=== PATIENT | male | born 1965 | race Caucasian/White ===

== ENCOUNTER 2017-06-20 15:04 | Inpatient (IN) | payer MEDICAID, OTHER ==
[~2017-06-20] VITALS: Ht 195.6 cm; Wt 101.5 kg
[2017-06-20] MEDS ORDERED: SODIUM CHLORIDE 0.9% 1,000 ML IV ONE ×2 (15:45→17:38)
[2017-06-20] MEDS ORDERED: SODIUM CHLORIDE 0.9% 1,000ML IVBOLUS ONE (16:00)
[2017-06-20] MEDS ORDERED: CLINDAMYCIN PMX 600MG/50ML 50 ML IVPB ONE (16:00)
[2017-06-20] MEDS ORDERED: LIDOCAINE 1%, 20ML SQ ONE (16:00)
[2017-06-20] MEDS ORDERED: SODIUM CHLORIDE FLUSH 10ML SYR IVF ONE (16:00)
[2017-06-20] MEDS ORDERED: CLINDAMYCIN PMX 600MG/50ML 50 ML ONE (16:12)
[2017-06-20 16:22] LABS: HEMATOCRIT 46.9 % (39.2-51.8); HEMOGLOBIN 15.5 g/dL (13.7-18.0); WHITE BLOOD COUNT 10.9 x10^3/uL (3.4-10)
[2017-06-20 16:31] LABS: BLOOD UREA NITROGEN 14 mg/dL (7-18)
[2017-06-20 16:34] LABS: ASPARTATE AMINO TRANSFERASE 18 U/L (15-37)
[2017-06-20] MEDS ORDERED: LIDOCAINE 1%, 20ML ONE (16:41)
[2017-06-20] MEDS ORDERED: VANCOMYCIN PER PHARMACY MC PRN (17:30)
[2017-06-20] MEDS ORDERED: ONDANSETRON ODT 4 MG PO PRN (17:30)
[2017-06-20] MEDS ORDERED: morphine SULFATE 10 MG/ML, 1ML IVPush PRN (17:30)
[2017-06-20] MEDS ORDERED: POLYETHYLENE GLYCOL 17 GM PACKET PO PRN (17:30)
[2017-06-20] MEDS ORDERED: LABETALOL 5MG/ML, 20ML IVPush PRN (17:30)
[2017-06-20] MEDS ORDERED: ONDANSETRON 2MG/ML, 2ML IVPush PRN (17:30)
[2017-06-20] MEDS ORDERED: DOCUSATE 100 MG CAPSULE PO PRN (17:30)
[2017-06-20] MEDS ORDERED: BISACODYL 10 MG SUPP PR PRN (17:30)
[2017-06-20] MEDS ORDERED: NICOTINE 21 MG/24 HR PATCH.TD24 TD ONE (18:00)
[2017-06-20] MEDS ORDERED: SODIUM CHLORIDE FLUSH 10ML SYR IVF PRN (18:00)
[2017-06-20] MEDS: AMPICILLIN/SULBACTAM 3 GM in SODIUM CHLORIDE 0.9% 100 ML IV SCH ×2 (18:08→23:39)
[2017-06-20 19:08] VITALS: BP 127/82
[2017-06-20] MEDS: ENOXAPARIN 40 MG/0.4 ML SQ SCH (19:26)
[2017-06-20] MEDS ORDERED: PHARMACOKINETIC CONSULTATION MC ONE (19:30)
[2017-06-20] MEDS ORDERED: PHARMACOKINETIC MONITORING MC PRN (19:30)
[2017-06-20] MEDS: SODIUM CHLORIDE 0.9% 1,000 ML IV SCH (20:07)
[2017-06-20] MEDS: VANCOMYCIN 2,000 MG in SODIUM CHLORIDE 0.9% 500 ML IV SCH (20:07)
[2017-06-21 00:17] VITALS: BP 133/92
[2017-06-21] MEDS: AMPICILLIN/SULBACTAM 3 GM in SODIUM CHLORIDE 0.9% 100 ML IV SCH ×3 (05:12→17:54)
[2017-06-21 05:45] LABS: HEMATOCRIT 44.3 % (39.2-51.8); HEMOGLOBIN 14.5 g/dL (13.7-18.0); WHITE BLOOD COUNT 8.1 x10^3/uL (3.4-10)
[2017-06-21 05:53] LABS: ASPARTATE AMINO TRANSFERASE 16 U/L (15-37); BLOOD UREA NITROGEN 13 mg/dL (7-18)
[2017-06-21] MEDS: SODIUM CHLORIDE 0.9% 1,000 ML IV SCH (07:47)
[2017-06-21] MEDS: VANCOMYCIN 2,000 MG in SODIUM CHLORIDE 0.9% 500 ML IV SCH ×2 (07:47→20:50)
[2017-06-21 08:13] VITALS: BP 135/87
[2017-06-21 11:02] LABS: DAU SCREEN DISCLAIMER
[2017-06-21] MEDS: ACETAMINOPHEN 325 MG TABLET PO PRN (13:22)
[2017-06-21 14:46] VITALS: BP 131/86
[2017-06-21] MEDS: ENOXAPARIN 40 MG/0.4 ML SQ SCH (17:54)
[2017-06-21 19:38] VITALS: BP 136/96
[2017-06-22] MEDS: AMPICILLIN/SULBACTAM 3 GM in SODIUM CHLORIDE 0.9% 100 ML IV SCH ×5 (00:14→23:16)
[2017-06-22 02:06] VITALS: BP 136/94
[2017-06-22] MEDS: VANCOMYCIN 2,000 MG in SODIUM CHLORIDE 0.9% 500 ML IV SCH ×2 (07:31→19:23)
[2017-06-22 07:59] VITALS: BP 144/98
[2017-06-22 13:54] VITALS: BP 149/93
[2017-06-22] MEDS: ENOXAPARIN 40 MG/0.4 ML SQ SCH (17:25)
[2017-06-22 19:36] VITALS: BP 141/97
[2017-06-23 03:28] VITALS: BP 146/97
[2017-06-23] MEDS: AMPICILLIN/SULBACTAM 3 GM in SODIUM CHLORIDE 0.9% 100 ML IV SCH ×4 (04:47→23:36)
[2017-06-23 07:29] VITALS: BP 151/101
[2017-06-23] MEDS: VANCOMYCIN 2,000 MG in SODIUM CHLORIDE 0.9% 500 ML IV SCH (08:07)
[2017-06-23 12:31] VITALS: BP 133/88
[2017-06-23] MEDS: ENOXAPARIN 40 MG/0.4 ML SQ SCH (17:13)
[2017-06-23 19:59] VITALS: BP 149/99
[2017-06-24] MEDS: AMPICILLIN/SULBACTAM 3 GM in SODIUM CHLORIDE 0.9% 100 ML IV SCH ×4 (05:30→23:20)
[2017-06-24 07:45] VITALS: BP 137/95
[2017-06-24] MEDS: AMLODIPINE 5 MG TABLET PO SCH (12:39)
[2017-06-24 14:58] VITALS: BP 132/88
[2017-06-24] MEDS: ENOXAPARIN 40 MG/0.4 ML SQ SCH (17:43)
[2017-06-24 19:36] VITALS: BP 141/95
[2017-06-25 00:57] VITALS: BP 138/93
[2017-06-25] MEDS: AMPICILLIN/SULBACTAM 3 GM in SODIUM CHLORIDE 0.9% 100 ML IV SCH ×4 (05:17→23:20)
[2017-06-25 07:17] VITALS: BP 124/82
[2017-06-25] MEDS: AMLODIPINE 5 MG TABLET PO SCH (09:35)
[2017-06-25] MEDS: NICOTINE 14MG/24 HR PATCH.TD24 TD SCH (12:03)
[2017-06-25 12:48] VITALS: BP 149/95
[2017-06-25] MEDS: ENOXAPARIN 40 MG/0.4 ML SQ SCH (17:52)
[2017-06-25] MEDS: ACETAMINOPHEN 325 MG TABLET PO PRN (17:59)
[2017-06-25 19:49] VITALS: BP 127/87
[2017-06-26 02:42] VITALS: BP 137/98
[2017-06-26] MEDS: AMPICILLIN/SULBACTAM 3 GM in SODIUM CHLORIDE 0.9% 100 ML IV SCH ×2 (04:55→11:30)
[2017-06-26 07:30] VITALS: BP 131/85
[2017-06-26] MEDS ORDERED: AMOX1TAB61 PO (10:18)
[2017-06-26] MEDS ORDERED: AMLO5TAB2 PO (10:18)
[2017-06-26] MEDS: NICOTINE 14MG/24 HR PATCH.TD24 TD SCH (10:42)
[2017-06-26] MEDS: AMLODIPINE 5 MG TABLET PO SCH (10:42)
== END 2017-06-26 13:08 | disposition home or self-care (01) | DRG 580 ==
LOC: ED 17:25 → EDIP 18:43 → 3NE 18:45 → DCLOUNGE 06-26 12:30
PROC: 0J9H0ZZ Drainage of Left Lower Arm Subcutaneous Tissue and Fascia, Open Approach (ICD-10-PCS; principal; 2017-06-20)
DX: L03.114 Cellulitis of left upper limb (principal); E44.1 Mild protein-calorie malnutrition; I10 Essential (primary) hypertension; L02.414 Cutaneous abscess of left upper limb; T63.301A Toxic effect of unspecified spider venom, accidental (unintentional), initial encounter; F15.90 Other stimulant use, unspecified, uncomplicated; Z68.26 Body mass index [BMI] 26.0-26.9, adult; Z72.0 Tobacco use; F19.90 Other psychoactive substance use, unspecified, uncomplicated
CPT/HCPCS: 10060; 36415; 80053; 80202; 80307; 83605; 84145; 85025; 87040; 87070; 87075; 87077; 87186; 87205; 96365; J0295; J1650; J3370; J7030; J7040

== ENCOUNTER 2020-05-17 12:45 | Inpatient (IN) | payer MEDICAID ==
[~2020-05-17] VITALS: Ht 195.6 cm; Wt 104.6 kg
[~2020-05-17 12:45] MED LIST: AMLO-150 PO; AMOX1TAB61 PO
--- NOTE | 2020-05-17 13:03 | NUR ---
RECRUITMENT CONSULTANT: PT FROM LOBBY TO ROOM AT THIS TIME.
--- NOTE | 2020-05-17 13:30 | NUR ---
PT C/O RRIGHT LOWER LEG PAIN AND SWELLING FOR ONE WEEK WITH REDNESS NOW EXTENDING UP TO PT'S MED THIGH. PT DENIES FEVERS/CHILLS. PT ALSO REPORTS WHITE DC FROM [facility] OVER SAME TIME PERIOD. PT HAS HX OF SURGERY TO LEG YEARS AGO FROM "[place]."
[2020-05-17] MEDS ORDERED: PIPERACILLIN/TAZO/PMX 3.375GM 50 ML IV ONE (14:00)
[2020-05-17] MEDS ORDERED: SODIUM CHLORIDE FLUSH 10ML SYR IVF ONE (14:00)
[2020-05-17] MEDS ORDERED: AZITHROMYCIN 500 MG TABLET PO ONE (14:00)
[2020-05-17] MEDS ORDERED: CEFTRIAXONE 250 MG IM ONE (14:00)
[2020-05-17] MEDS ORDERED: AZITHROMYCIN 500 MG TABLET ONE (14:13)
[2020-05-17] MEDS ORDERED: PIPERACILLIN/TAZO/PMX 3.375GM 50 ML ONE (14:13)
[2020-05-17] MEDS ORDERED: LIDOCAINE-MPF 1%, 5ML ONE (14:14)
[2020-05-17] MEDS ORDERED: CEFTRIAXONE 250 MG ONE (14:14)
[2020-05-17 14:22] LABS: MEAN CORPUSCULAR HEMOGLOBIN 30.3 pg (27.5-34.5); MEAN CORPUSCULAR HGB CONC 32.9 g/dL (33.2-36.2); MEAN CORPUSCULAR VOLUME 92.2 fL (81-97); MEAN PLATELET VOLUME 8.9 fL (7.4-10.4); PLATELET COUNT 262 x10^3/uL (130-400); RED BLOOD COUNT 4.33 x10^6/uL (4.38-5.82); RED CELL DISTRIBUTION WIDTH 13.7 % (9.4-14.8)
[2020-05-17 14:31] LABS: ALBUMIN 2.3 g/dL (3.4-5.0); ANION GAP 6 mmol/L (5-15); CALCIUM 8.1 mg/dL (8.5-10.1); CHLORIDE 102 mmol/L (98-107)
--- NOTE | 2020-05-17 14:31 | NUR ---
ANTIBIOTICS STARTED AFTER BLOOD CULTURES X 2 WERE DRAWN.
[2020-05-17 14:35] LABS: ALANINE AMINOTRANSFERASE 97 U/L (12-78); ALKALINE PHOSPHATASE 142 U/L (45-117); BILIRUBIN,TOTAL 0.7 mg/dL (0.2-1.0); CREATININE 0.91 mg/dL (0.7-1.3); TOTAL PROTEIN 6.9 g/dL (6.4-8.2)
[2020-05-17 14:56] LABS: BASOPHILS # (AUTO) 0.03 x10^3/uL (0-0.1); BASOPHILS % (AUTO) 0 % (0-1); EOSINOPHILS # (AUTO) 0.09 x10^3/uL (0-0.4); EOSINOPHILS % (AUTO) 1 % (1-7); LYMPHOCYTES % (AUTO) 9 % (22-44); MD SCAN; MONOCYTES # (AUTO) 1.21 x10^3/uL (0.2-0.8); MONOCYTES % (AUTO) 10 % (2-9); NEUTROPHILS # (AUTO) 10.01 x10^3/uL (1.8-6.8); NEUTROPHILS % (AUTO) 80 % (42-75)
--- NOTE | 2020-05-17 16:00 | NUR ---
XRAY OF LEG BEING DONE AT BEDSIDE. PT TO BE ADMITTED. WAITING FOR BED ASSIGNMENT.
--- NOTE | 2020-05-17 16:27 | NUR ---
DR. Braun at bedside for admit.
[2020-05-17] MEDS ORDERED: VANCOMYCIN PER PHARMACY MC PRN (16:30)
[2020-05-17] MEDS ORDERED: hydrALAzine 20 MG/ML, 1ML IVPush PRN (16:30)
[2020-05-17] MEDS ORDERED: ONDANSETRON 2MG/ML, 2ML IVPush PRN (16:30)
[2020-05-17] MEDS ORDERED: SODIUM CHLORIDE FLUSH 10ML SYR IVF PRN (16:30)
--- NOTE | 2020-05-17 16:59 | NUR ---
SUNNY Guzman [phone], FRIEND OF PT LEFT NUMBER TO CALL FOR PT WHEN HE AWAKES.
[2020-05-17] MEDS ORDERED: VANCOMYCIN 2,000 MG in SODIUM CHLORIDE 0.9% 500 ML IV ONE (17:00)
--- NOTE | 2020-05-17 17:26 | NUR ---
TASK RN: PT RESTING IN [facility]. VSS. NAD. US IN WITH PT AT THIS TIME
--- NOTE | 2020-05-17 17:56 | NUR ---
Pt. with medicaid [place]. PSN was faxed and confirmation was recieved. called [facility]. Spoke to Nancy. Denied. called [facility]. Spoke to Chelsea. Denied.
[2020-05-17] MEDS ORDERED: ENOXAPARIN 40 MG/0.4 ML ONE (18:12)
[2020-05-17] MEDS: ENOXAPARIN 40 MG/0.4 ML SQ SCH (18:14)
[2020-05-17 20:00] VITALS: BP 114/75
[2020-05-17] MEDS ORDERED: POTASSIUM CHLORIDE 20 MEQ TAB.ER.PRT PO ONE (20:00)
[2020-05-17] MEDS: NICOTINE 21 MG/24 HR PATCH.TD24 TD SCH (20:08)
[2020-05-17] MEDS: SODIUM CHLORIDE 0.9% 1,000 ML IV SCH (20:09)
[2020-05-17] MEDS: ACETAMINOPHEN 325 MG TABLET PO PRN (23:37)
[2020-05-18 00:33] LABS: AMPHETAMINE SCREEN, URINE Positive (Negative); BARBITURATE SCREEN, URINE Negative (Negative); BENZODIAZEPINE SCREEN, URINE Negative (Negative); CANNABINOID SCREEN, URINE Negative (Negative); COCAINE SCREEN, URINE Negative (Negative); METHADONE SCREEN, URINE Negative (Negative); OPIATE SCREEN, URINE Negative (Negative)
[2020-05-18 01:49] VITALS: BP 118/71
[2020-05-18 06:03] LABS: BASOPHILS # (AUTO) 0.01 x10^3/uL (0-0.1); BASOPHILS % (AUTO) 0 % (0-1); EOSINOPHILS # (AUTO) 0.24 x10^3/uL (0-0.4); EOSINOPHILS % (AUTO) 2 % (1-7); LYMPHOCYTES % (AUTO) 14 % (22-44); MD NO; MEAN CORPUSCULAR HEMOGLOBIN 30.3 pg (27.5-34.5); MEAN CORPUSCULAR HGB CONC 32.8 g/dL (33.2-36.2); MEAN CORPUSCULAR VOLUME 92.4 fL (81-97); MEAN PLATELET VOLUME 8.8 fL (7.4-10.4); MONOCYTES # (AUTO) 0.94 x10^3/uL (0.2-0.8); MONOCYTES % (AUTO) 9 % (2-9); NEUTROPHILS % (AUTO) 74 % (42-75); PLATELET COUNT 266 x10^3/uL (130-400); RED BLOOD COUNT 4.25 x10^6/uL (4.38-5.82); RED CELL DISTRIBUTION WIDTH 14.2 % (9.4-14.8)
[2020-05-18 06:11] LABS: ALANINE AMINOTRANSFERASE 98 U/L (12-78); ANION GAP 5 mmol/L (5-15); CALCIUM 8.3 mg/dL (8.5-10.1); CHLORIDE 105 mmol/L (98-107)
[2020-05-18 06:13] LABS: ALKALINE PHOSPHATASE 157 U/L (45-117); BILIRUBIN,TOTAL 0.4 mg/dL (0.2-1.0); CREATININE 1.02 mg/dL (0.7-1.3); TOTAL PROTEIN 6.5 g/dL (6.4-8.2)
[2020-05-18 07:00] VITALS: BP 118/77
[2020-05-18] MEDS ORDERED: POTASSIUM CHLORIDE 20 MEQ TAB.ER.PRT PO ONE ×2 (09:00→11:00)
[2020-05-18 14:07] VITALS: BP 131/76
[2020-05-18] MEDS ORDERED: POTASSIUM CHLORIDE 20 MEQ TAB.ER.PRT ONE (16:55)
[2020-05-18] MEDS: VANCOMYCIN 2,000 MG in SODIUM CHLORIDE 0.9% 500 ML IV SCH (16:56)
[2020-05-18] MEDS: ENOXAPARIN 40 MG/0.4 ML SQ SCH (16:57)
[2020-05-18] MEDS: NICOTINE 21 MG/24 HR PATCH.TD24 TD SCH (16:57)
[2020-05-18] MEDS: ACETAMINOPHEN 325 MG TABLET PO PRN (16:57)
[2020-05-18] MEDS: SODIUM CHLORIDE 0.9% 1,000 ML IV SCH (16:58)
[2020-05-18 19:45] VITALS: BP 107/70
[2020-05-19 01:21] VITALS: BP 115/75
[2020-05-19] MEDS: ACETAMINOPHEN 325 MG TABLET PO PRN (01:42)
[2020-05-19] MEDS: VANCOMYCIN 2,000 MG in SODIUM CHLORIDE 0.9% 500 ML IV SCH ×2 (04:45→16:40)
[2020-05-19 09:27] VITALS: BP 118/78
[2020-05-19] MEDS: ACETAMINOPHEN 325 MG TABLET PO SCH ×3 (11:09→23:27)
[2020-05-19 12:43] VITALS: BP 127/82
[2020-05-19] MEDS ORDERED: PHARMACOKINETIC MONITORING MC PRN (15:00)
[2020-05-19] MEDS ORDERED: PHARMACOKINETIC CONSULTATION MC ONE (15:00)
[2020-05-19] MEDS: ENOXAPARIN 40 MG/0.4 ML SQ SCH (16:39)
[2020-05-19] MEDS: NICOTINE 21 MG/24 HR PATCH.TD24 TD SCH (16:39)
[2020-05-19 18:47] VITALS: BP 118/72
[2020-05-20 01:24] VITALS: BP 116/77
[2020-05-20] MEDS: VANCOMYCIN 2,000 MG in SODIUM CHLORIDE 0.9% 500 ML IV SCH (04:59)
[2020-05-20 05:34] LABS: CHLORIDE 108 mmol/L (98-107)
[2020-05-20 05:40] LABS: ALANINE AMINOTRANSFERASE 70 U/L (12-78); ALBUMIN 1.7 g/dL (3.4-5.0); ALKALINE PHOSPHATASE 156 U/L (45-117); ANION GAP 7 mmol/L (5-15); BILIRUBIN,TOTAL 0.3 mg/dL (0.2-1.0); CALCIUM 8.1 mg/dL (8.5-10.1); CREATININE 0.83 mg/dL (0.7-1.3); TOTAL PROTEIN 6.4 g/dL (6.4-8.2)
[2020-05-20 08:00] VITALS: BP 149/91
[2020-05-20] MEDS: ACETAMINOPHEN 325 MG TABLET PO SCH (09:06)
[2020-05-20] MEDS ORDERED: CLIN300C8 PO (10:07)
[2020-05-20] MEDS ORDERED: CLIN150C14 PO (10:07)
== END 2020-05-20 14:03 | disposition home or self-care (01) | DRG 603 ==
LOC: ED 16:37 → EDIP 19:07 → 3N 19:24
PROVIDERS: ADMIT Hospitalist; ATTEND Hospitalist
DX: L03.115 Cellulitis of right lower limb (principal); F10.10 Alcohol abuse, uncomplicated; F15.90 Other stimulant use, unspecified, uncomplicated
CPT/HCPCS: 36415; 76700; 80053; 80202; 80307; 83605; 83735; 84100; 84145; 85025; 86704; 86706; 86708; 86803; 87040; 87340; 87491; 87591; 87806; G0378; J0696; J1650; J2543; J3370; G0475; J7030; J7040

== ENCOUNTER 2021-01-10 12:52 | Inpatient (IN) | payer MEDICAID ==
[~2021-01-10] VITALS: Ht 195.6 cm; Wt 101.5 kg
[~2021-01-10 12:52] MED LIST changes: +CLIN150C15 PO; +CLIN300C9 PO
[2021-01-10] MEDS ORDERED: SODIUM CHLORIDE FLUSH 10ML SYR IVF ONE (13:30)
--- NOTE | 2021-01-10 13:49 | NUR ---
PIV PLACED FROM WHICH LABS WERE DRAWN
--- NOTE | 2021-01-10 13:56 | NUR ---
FSBS [address] SCAN FOR HEAD/NECK AT 1353
[2021-01-10] MEDS ORDERED: HYDR-1067 PO (13:58)
[2021-01-10 13:59] LABS: BASOPHILS % (AUTO) 1 % (0-1); EOSINOPHILS % (AUTO) 0 % (1-7); LYMPHOCYTES % (AUTO) 12 % (22-44); MEAN CORPUSCULAR HEMOGLOBIN 29.5 pg (27.5-34.5); MEAN CORPUSCULAR HGB CONC 33.8 g/dL (33.2-36.2); MEAN PLATELET VOLUME 8.3 fL (7.4-10.4); MONOCYTES % (AUTO) 7 % (2-9); NEUTROPHILS % (AUTO) 80 % (42-75); PLATELET COUNT 505 x10^3/uL (130-400); RED BLOOD COUNT 5.07 x10^6/uL (4.38-5.82); RED CELL DISTRIBUTION WIDTH 14.5 % (9.4-14.8)
[2021-01-10 14:00] LABS: ALBUMIN 3.4 g/dL (3.4-5.0); ANION GAP 8 mmol/L (5-15); CALCIUM 9.6 mg/dL (8.5-10.1); CHLORIDE 101 mmol/L (98-107); CREATININE 1.15 mg/dL (0.7-1.3)
--- NOTE | 2021-01-10 14:22 | NUR ---
PT CALMLY SITTING ON GURNEY, WATCHING TV. COMFORT MEASURES PROVIDED. MONITORS IN PLACE. BED RAILS UP X2. CALL LIGHT WITHIN REACH.
[2021-01-10 14:23] LABS: MD SCAN
[2021-01-10] MEDS ORDERED: SODIUM CHLORIDE FLUSH 10ML SYR IVF PRN (15:30)
[2021-01-10] MEDS ORDERED: TRAZODONE 50MG TABLET PO PRN (15:30)
[2021-01-10] MEDS ORDERED: DOCUSATE 100 MG CAPSULE PO PRN (15:30)
[2021-01-10] MEDS ORDERED: ONDANSETRON 2MG/ML, 2ML IVPush PRN (15:30)
[2021-01-10 15:43] LABS: TROPONIN I < 0.015 ng/mL (0.000-0.045)
--- NOTE | 2021-01-10 15:45 | NUR ---
PT TO MRI
--- NOTE | 2021-01-10 15:50 | NUR ---
Pt to be admitted to CARDIAC TELE, room 508-1. Report called to MAITE.
[2021-01-10] MEDS ORDERED: OMNIPAQUE 350 MG/ML, 100ML BOTTLE ONE (16:41)
[2021-01-10 17:30] VITALS: BP 135/96
[2021-01-10] MEDS: ENOXAPARIN 40 MG/0.4 ML SQ SCH (18:21)
[2021-01-10 19:58] VITALS: BP 123/86
[2021-01-10] MEDS ORDERED: LACTATED RINGERS 1,000 ML IV ONE (20:30)
[2021-01-10] MEDS: ATORVASTATIN 40 MG TABLET PO SCH (20:39)
--- NOTE | 2021-01-10 21:27 | NUR ---
throughput rn accessed chart to send up paper chart left in ed.
[2021-01-10 22:01] LABS: TROPONIN I < 0.015 ng/mL (0.000-0.045)
[2021-01-11 01:18] VITALS: BP 136/98
[2021-01-11 04:55] LABS: BASOPHILS % (AUTO) 1 % (0-1); EOSINOPHILS % (AUTO) 1 % (1-7); LYMPHOCYTES % (AUTO) 14 % (22-44); MEAN CORPUSCULAR HEMOGLOBIN 29.1 pg (27.5-34.5); MEAN CORPUSCULAR HGB CONC 33.5 g/dL (33.2-36.2); MEAN PLATELET VOLUME 8.4 fL (7.4-10.4); MONOCYTES % (AUTO) 9 % (2-9); NEUTROPHILS % (AUTO) 74 % (42-75); PLATELET COUNT 422 x10^3/uL (130-400); RED BLOOD COUNT 4.43 x10^6/uL (4.38-5.82); RED CELL DISTRIBUTION WIDTH 14.8 % (9.4-14.8)
[2021-01-11 04:56] LABS: MD NO
[2021-01-11 05:04] LABS: ANION GAP 7 mmol/L (5-15); CALCIUM 8.6 mg/dL (8.5-10.1); CHLORIDE 104 mmol/L (98-107); CHOLESTEROL, TOTAL 200 mg/dL (140-239); CREATININE 0.82 mg/dL (0.7-1.3)
[2021-01-11 05:14] LABS: CHOL/HDL RATIO 9.5; HDL CHOL % 11 % (26-37); HDL CHOLESTEROL (DIRECT) 21 mg/dL (40-60); LDL CHOLESTEROL,CALCULATED 155 mg/dL (54-169); LDL/HDL RATIO 7.4 (0.5-3.0); TRIGLYCERIDES 122 mg/dL (50-200); VLDL CHOLESTEROL 24 mg/dL (0-25)
[2021-01-11] MEDS: ASPIRIN 325 MG TABLET PO SCH (05:18)
[2021-01-11 07:11] VITALS: BP 136/89
[2021-01-11] MEDS: ACETAMINOPHEN 325 MG TABLET PO PRN ×2 (09:39→22:06)
[2021-01-11 13:02] VITALS: BP 133/97
[2021-01-11] MEDS: ENOXAPARIN 40 MG/0.4 ML SQ SCH (16:04)
[2021-01-11] MEDS: HYDROcodone/APAP 5/325 TABLET PO PRN (18:09)
[2021-01-11] MEDS ORDERED: GADOTERATE 10 MMOL/20 ML VIAL ONE (18:39)
[2021-01-11] MEDS ORDERED: LIDOCAINE JELLY 2%, 30GM TP ONE (20:00)
[2021-01-11 20:20] VITALS: BP 132/94
[2021-01-11] MEDS: ATORVASTATIN 40 MG TABLET PO SCH (22:08)
[2021-01-12] MEDS: HYDROcodone/APAP 5/325 TABLET PO PRN ×3 (00:19→17:32)
[2021-01-12 00:20] VITALS: BP 144/77
[2021-01-12] MEDS: ASPIRIN 325 MG TABLET PO SCH (05:56)
[2021-01-12 07:28] VITALS: BP 135/90
[2021-01-12] MEDS ORDERED: GADOTERATE 10 MMOL/20 ML VIAL ONE (13:30)
[2021-01-12 14:58] VITALS: BP 156/99
[2021-01-12] MEDS: ENOXAPARIN 40 MG/0.4 ML SQ SCH (16:51)
[2021-01-12 20:32] VITALS: BP 136/95
[2021-01-12] MEDS: ACETAMINOPHEN 325 MG TABLET PO PRN (20:44)
[2021-01-12] MEDS: ATORVASTATIN 40 MG TABLET PO SCH (20:44)
[2021-01-13 00:36] VITALS: BP 143/94
[2021-01-13] MEDS: ASPIRIN 325 MG TABLET PO SCH (06:18)
[2021-01-13] MEDS: HYDROcodone/APAP 5/325 TABLET PO PRN ×4 (06:24→21:36)
[2021-01-13 07:00] VITALS: BP 151/99
[2021-01-13 13:21] VITALS: BP 139/96
[2021-01-13] MEDS: ENOXAPARIN 40 MG/0.4 ML SQ SCH (15:06)
[2021-01-13 18:46] VITALS: BP 147/96
[2021-01-14 02:43] VITALS: BP 130/83
[2021-01-14 04:57] LABS: BASOPHILS % (AUTO) 1 % (0-1); EOSINOPHILS % (AUTO) 2 % (1-7); LYMPHOCYTES % (AUTO) 11 % (22-44); MD NO; MEAN CORPUSCULAR HEMOGLOBIN 29.3 pg (27.5-34.5); MEAN CORPUSCULAR HGB CONC 33.6 g/dL (33.2-36.2); MONOCYTES % (AUTO) 7 % (2-9); NEUTROPHILS % (AUTO) 80 % (42-75); PLATELET COUNT 447 x10^3/uL (130-400); RED CELL DISTRIBUTION WIDTH 14.5 % (9.4-14.8)
[2021-01-14 05:06] LABS: ALBUMIN 2.6 g/dL (3.4-5.0); ANION GAP 8 mmol/L (5-15); CALCIUM 8.8 mg/dL (8.5-10.1); CHLORIDE 103 mmol/L (98-107); CREATININE 0.74 mg/dL (0.7-1.3)
[2021-01-14 08:00] VITALS: BP 136/97
[2021-01-14 14:00] VITALS: BP 123/90
[2021-01-14] MEDS: ENOXAPARIN 40 MG/0.4 ML SQ SCH (15:30)
[2021-01-14 18:34] VITALS: BP 138/89
[2021-01-14] MEDS: HYDROcodone/APAP 5/325 TABLET PO PRN (23:02)
[2021-01-15 02:30] VITALS: BP 123/89
[2021-01-15 05:19] LABS: BASOPHILS % (AUTO) 1 % (0-1); EOSINOPHILS % (AUTO) 1 % (1-7); LYMPHOCYTES % (AUTO) 12 % (22-44); MEAN CORPUSCULAR HEMOGLOBIN 28.6 pg (27.5-34.5); MEAN CORPUSCULAR HGB CONC 32.9 g/dL (33.2-36.2); MEAN PLATELET VOLUME 8.1 fL (7.4-10.4); MONOCYTES % (AUTO) 8 % (2-9); NEUTROPHILS % (AUTO) 78 % (42-75); PLATELET COUNT 526 x10^3/uL (130-400); RED BLOOD COUNT 4.81 x10^6/uL (4.38-5.82); RED CELL DISTRIBUTION WIDTH 14.7 % (9.4-14.8)
[2021-01-15 05:21] LABS: MD NO
[2021-01-15 07:20] VITALS: BP 132/94
[2021-01-15 13:15] VITALS: BP 127/92
--- NOTE | 2021-01-15 14:06 | NUR ---
TF orders: Jevmarko 1.2 @ 80 mL/hr Addendum: 01/15/21 at [address] Amended: Links added.
[2021-01-15] MEDS: HYDROcodone/APAP 5/325 TABLET PO PRN ×2 (14:43→21:16)
[2021-01-15 15:20] LABS: AMPHETAMINE SCREEN, URINE Negative (Negative); BARBITURATE SCREEN, URINE Negative (Negative); BENZODIAZEPINE SCREEN, URINE Negative (Negative); CANNABINOID SCREEN, URINE Negative (Negative); COCAINE SCREEN, URINE Negative (Negative); METHADONE SCREEN, URINE Negative (Negative); OPIATE SCREEN, URINE Positive (Negative)
--- NOTE | 2021-01-15 15:20 | NUR ---
Tube Feed: Jevity 1.2 goal: 80 ml/hr Addendum: 01/15/21 at [address] Amended: Links added.
[2021-01-15] MEDS ORDERED: LIDOCAINE 1%, 10ML ONE (16:22)
[2021-01-15] MEDS ORDERED: FENTANYL PF 100 MCG/2ML ONE ×2 (16:23)
[2021-01-15] MEDS ORDERED: FLUMAZENIL 0.1 MG/1 ML, 5ML ONE (16:23)
[2021-01-15] MEDS ORDERED: MIDAZOLAM 1 MG/ML, 5ML ONE (16:23)
[2021-01-15] MEDS ORDERED: NALOXONE 1 MG/ML, 2ML ONE (16:24)
[2021-01-15 18:39] VITALS: BP 122/89
[2021-01-15] MEDS: TRAZODONE 50MG TABLET PO SCH (21:58)
[2021-01-16 02:35] VITALS: BP 115/83
[2021-01-16 05:18] LABS: BASOPHILS % (AUTO) 1 % (0-1); EOSINOPHILS % (AUTO) 2 % (1-7); LYMPHOCYTES % (AUTO) 11 % (22-44); MEAN CORPUSCULAR HEMOGLOBIN 28.5 pg (27.5-34.5); MEAN CORPUSCULAR HGB CONC 33.5 g/dL (33.2-36.2); MEAN PLATELET VOLUME 7.9 fL (7.4-10.4); MONOCYTES % (AUTO) 8 % (2-9); NEUTROPHILS % (AUTO) 79 % (42-75); PLATELET COUNT 510 x10^3/uL (130-400); RED BLOOD COUNT 4.59 x10^6/uL (4.38-5.82)
[2021-01-16 05:23] LABS: MD NO
[2021-01-16 08:14] VITALS: BP 123/90
[2021-01-16] MEDS: morphine SULFATE 10 MG/ML, 1ML IVPush PRN ×3 (09:20→19:45)
[2021-01-16] MEDS ORDERED: ENOXAPARIN 40 MG/0.4 ML SQ SCH (09:30)
[2021-01-16 13:42] VITALS: BP 117/83
[2021-01-16] MEDS: HEPARIN 25,000 UNITS/250ML PMX 250 ML IV PRN (14:16)
[2021-01-16 19:53] VITALS: BP 114/79
[2021-01-16] MEDS: TRAZODONE 50MG TABLET PO SCH (22:28)
[2021-01-16] MEDS: HEPARIN 5,000 UNITS/ML, 1ML IV PRN (22:30)
[2021-01-17 01:18] VITALS: BP 108/73
[2021-01-17] MEDS: HEPARIN 5,000 UNITS/ML, 1ML IV PRN ×3 (05:55→20:44)
[2021-01-17 06:56] VITALS: BP 118/84
[2021-01-17] MEDS: HEPARIN 25,000 UNITS/250ML PMX 250 ML IV PRN ×2 (07:08→23:11)
[2021-01-17] MEDS: morphine SULFATE 10 MG/ML, 1ML IVPush PRN ×4 (07:55→23:20)
[2021-01-17] MEDS ORDERED: PHENOL THROAT SPRAY BOTTLE MM PRN (08:30)
[2021-01-17 12:59] VITALS: BP 121/88
[2021-01-17 19:44] VITALS: BP 135/93
[2021-01-17] MEDS: TRAZODONE 50MG TABLET PO SCH (20:44)
[2021-01-18 01:07] VITALS: BP 105/69
[2021-01-18] MEDS: morphine SULFATE 10 MG/ML, 1ML IVPush PRN ×2 (04:45→08:33)
[2021-01-18 04:56] LABS: ANION GAP 6 mmol/L (5-15); CALCIUM 8.9 mg/dL (8.5-10.1); CHLORIDE 101 mmol/L (98-107); CREATININE 0.71 mg/dL (0.7-1.3)
[2021-01-18 04:59] LABS: BASOPHILS % (AUTO) 1 % (0-1); EOSINOPHILS % (AUTO) 1 % (1-7); LYMPHOCYTES % (AUTO) 17 % (22-44); MEAN CORPUSCULAR HEMOGLOBIN 28.5 pg (27.5-34.5); MEAN CORPUSCULAR HGB CONC 33.1 g/dL (33.2-36.2); MEAN PLATELET VOLUME 7.9 fL (7.4-10.4); MONOCYTES % (AUTO) 9 % (2-9); NEUTROPHILS % (AUTO) 72 % (42-75); PLATELET COUNT 498 x10^3/uL (130-400); RED BLOOD COUNT 4.54 x10^6/uL (4.38-5.82); RED CELL DISTRIBUTION WIDTH 14.7 % (9.4-14.8)
[2021-01-18 05:01] LABS: MD NO
[2021-01-18 06:45] VITALS: BP 100/67
[2021-01-18] MEDS: FENTANYL 25 MCG PATCH TD SCH (08:33)
[2021-01-18] MEDS: HEPARIN 25,000 UNITS/250ML PMX 250 ML IV PRN (11:31)
[2021-01-18] MEDS: MORPHINE SULFATE 4 MG/ML, 1ML IVPush PRN ×3 (11:46→21:34)
[2021-01-18 13:27] VITALS: BP 119/83
[2021-01-18 20:35] VITALS: BP 127/88
[2021-01-18] MEDS: TRAZODONE 50MG TABLET PO SCH (21:34)
[2021-01-19] MEDS: HEPARIN 25,000 UNITS/250ML PMX 250 ML IV PRN ×2 (00:43→19:23)
[2021-01-19 00:46] VITALS: BP 113/74
[2021-01-19] MEDS: MORPHINE SULFATE 4 MG/ML, 1ML IVPush PRN ×4 (05:56→19:39)
[2021-01-19 06:10] LABS: INTERNATIONAL NORMALIZED RATIO 1.08 (0.93-1.1); PROTHROMBIN TIME 11.5 Seconds (9.6-11.5)
[2021-01-19 07:09] VITALS: BP 124/86
[2021-01-19] MEDS ORDERED: LABETALOL 5MG/ML, 20ML IV PRN (08:30)
[2021-01-19] MEDS ORDERED: HYDROmorphone 1 MG/ML, 1ML INJ IVPush PRN (08:30)
[2021-01-19] MEDS ORDERED: hydrALAzine 20 MG/ML, 1ML IV PRN (08:30)
[2021-01-19] MEDS ORDERED: ACETAMINOPHEN 325 MG TABLET PO PRN (08:30)
[2021-01-19] MEDS ORDERED: OXYcodone 5 MG/5 ML ORAL.SOL UDC PO PRN (08:30)
[2021-01-19] MEDS ORDERED: FENTANYL PF 100 MCG/2ML IV PRN (08:30)
[2021-01-19] MEDS ORDERED: ONDANSETRON 2MG/ML, 2ML IVPush PRN (08:30)
[2021-01-19] MEDS ORDERED: PROMETHAZINE 25 MG/ML, 1ML IVPush PRN (08:30)
[2021-01-19] MEDS ORDERED: EPHEDRINE 50 MG/ML, 1ML IVPush PRN (08:30)
[2021-01-19] MEDS ORDERED: PROPOFOL 50 ML ONE (11:12)
[2021-01-19] MEDS ORDERED: CEFAZOLIN PMX 2GM/50ML 100 ML IV ONE (12:00)
[2021-01-19] MEDS ORDERED: CHLORHEXIDINE 15 ML UDC ONE (12:40)
[2021-01-19 13:38] VITALS: BP 118/83
[2021-01-19] MEDS ORDERED: OMNIPAQUE 350 MG/ML, 100ML BOTTLE ONE (17:40)
[2021-01-19] MEDS ORDERED: HEPARIN 5,000 UNITS/ML, 1ML IV ONE (19:30)
[2021-01-19 20:41] VITALS: BP 130/93
[2021-01-19] MEDS: TRAZODONE 50MG TABLET PO SCH (21:49)
[2021-01-20 01:45] VITALS: BP 118/80
[2021-01-20 02:22] LABS: ANION GAP 9 mmol/L (5-15); CALCIUM 8.7 mg/dL (8.5-10.1); CHLORIDE 98 mmol/L (98-107); CREATININE 0.71 mg/dL (0.7-1.3)
[2021-01-20 02:23] LABS: BASOPHILS % (AUTO) 1 % (0-1); EOSINOPHILS % (AUTO) 1 % (1-7); LYMPHOCYTES % (AUTO) 12 % (22-44); MEAN CORPUSCULAR HEMOGLOBIN 28.3 pg (27.5-34.5); MEAN CORPUSCULAR HGB CONC 32.8 g/dL (33.2-36.2); MONOCYTES % (AUTO) 8 % (2-9); NEUTROPHILS % (AUTO) 79 % (42-75); PLATELET COUNT 543 x10^3/uL (130-400); RED BLOOD COUNT 4.61 x10^6/uL (4.38-5.82); RED CELL DISTRIBUTION WIDTH 14.3 % (9.4-14.8)
[2021-01-20 02:28] LABS: MD NO
[2021-01-20] MEDS: HEPARIN 5,000 UNITS/ML, 1ML IV PRN ×4 (02:45→23:47)
[2021-01-20] MEDS: MORPHINE SULFATE 4 MG/ML, 1ML IVPush PRN ×2 (02:51→10:37)
[2021-01-20 05:52] LABS: ALBUMIN 2.5 g/dL (3.4-5.0); BILIRUBIN, DIRECT 0.4 mg/dL (0.1-0.2)
[2021-01-20 06:02] LABS: BILIRUBIN,INDIRECT 0.3 mg/dL (0.0-2.0); BILIRUBIN,TOTAL 0.7 mg/dL (0.2-1.0); TOTAL PROTEIN 7.6 g/dL (6.4-8.2)
[2021-01-20 07:05] VITALS: BP 113/76
[2021-01-20] MEDS ORDERED: GOLYTELY 4,000ML ORAL.SOL PO ONE (09:30)
[2021-01-20 12:43] VITALS: BP 122/85
[2021-01-20] MEDS: HEPARIN 25,000 UNITS/250ML PMX 250 ML IV PRN (13:56)
[2021-01-20 18:33] LABS: OCCULT BLOOD POSITIVE (NEGATIVE)
[2021-01-20] MEDS: ONDANSETRON ODT 4 MG PO PRN (19:41)
[2021-01-20] MEDS: HYDROmorphone 1 MG/ML, 1ML INJ IV PRN (19:49)
[2021-01-20 20:44] VITALS: BP 134/92
[2021-01-20] MEDS: TRAZODONE 50MG TABLET PO SCH (21:08)
[2021-01-21 02:04] VITALS: BP 126/89
[2021-01-21] MEDS: ONDANSETRON ODT 4 MG PO PRN (04:00)
[2021-01-21] MEDS: HYDROmorphone 1 MG/ML, 1ML INJ IV PRN ×3 (04:01→20:30)
[2021-01-21] MEDS: HEPARIN 25,000 UNITS/250ML PMX 250 ML IV PRN ×2 (04:43→17:45)
[2021-01-21 07:36] VITALS: BP 121/86
[2021-01-21] MEDS: FENTANYL 25 MCG PATCH TD SCH (08:26)
[2021-01-21] MEDS: FENTANYL REMOVE PATCH NOTE XX SCH (08:26)
[2021-01-21] MEDS ORDERED: FENTANYL PF 100 MCG/2ML ONE (08:41)
[2021-01-21] MEDS ORDERED: MIDAZOLAM 1 MG/ML, 5ML ONE (08:41)
[2021-01-21] MEDS: DEXAMETHASONE INTENSOL 1 MG/ML ORAL SOL PO SCH ×3 (12:03→22:56)
[2021-01-21 12:51] VITALS: BP 119/83
[2021-01-21] MEDS ORDERED: HEPARIN 5,000 UNITS/ML, 1ML ONE (16:53)
[2021-01-21] MEDS ORDERED: HEPARIN 1,000 UNITS/ML, 1ML IVPush PRN (17:30)
[2021-01-21 18:37] VITALS: BP 135/89
[2021-01-21] MEDS: D5%-LACTATED RINGERS 1,000 ML IV SCH (20:20)
[2021-01-21] MEDS: TRAZODONE 50MG TABLET PO SCH (20:38)
[2021-01-22 02:39] VITALS: BP 130/88
[2021-01-22] MEDS: D5%-LACTATED RINGERS 1,000 ML IV SCH ×2 (05:10→14:58)
[2021-01-22] MEDS: HEPARIN 25,000 UNITS/250ML PMX 250 ML IV PRN ×2 (05:17→15:45)
[2021-01-22] MEDS: HYDROmorphone 1 MG/ML, 1ML INJ IV PRN ×5 (05:18→20:10)
[2021-01-22 07:05] VITALS: BP 119/67
[2021-01-22] MEDS: DEXAMETHASONE INTENSOL 1 MG/ML ORAL SOL PO SCH ×2 (09:00→21:06)
[2021-01-22 13:37] VITALS: BP 115/77
[2021-01-22 18:46] VITALS: BP 132/88
[2021-01-22] MEDS: TRAZODONE 50MG TABLET PO SCH (21:06)
[2021-01-23] MEDS: D5%-LACTATED RINGERS 1,000 ML IV SCH ×2 (01:07→17:00)
[2021-01-23] MEDS: HYDROmorphone 1 MG/ML, 1ML INJ IV PRN ×7 (01:12→21:56)
[2021-01-23 01:20] VITALS: BP 119/77
[2021-01-23] MEDS: HEPARIN 25,000 UNITS/250ML PMX 250 ML IV PRN (03:48)
[2021-01-23 05:28] LABS: BASOPHILS % (AUTO) 0 % (0-1); EOSINOPHILS % (AUTO) 0 % (1-7); LYMPHOCYTES % (AUTO) 8 % (22-44); MEAN CORPUSCULAR HEMOGLOBIN 28.5 pg (27.5-34.5); MEAN CORPUSCULAR HGB CONC 32.6 g/dL (33.2-36.2); MEAN PLATELET VOLUME 7.2 fL (7.4-10.4); MONOCYTES % (AUTO) 4 % (2-9); NEUTROPHILS % (AUTO) 88 % (42-75); PLATELET COUNT 486 x10^3/uL (130-400); RED BLOOD COUNT 4.87 x10^6/uL (4.38-5.82); RED CELL DISTRIBUTION WIDTH 14.5 % (9.4-14.8)
[2021-01-23 05:29] LABS: MD NO
[2021-01-23 05:33] LABS: CHLORIDE 99 mmol/L (98-107)
[2021-01-23 05:45] LABS: ALANINE AMINOTRANSFERASE 21 U/L (12-78); ALBUMIN 2.5 g/dL (3.4-5.0); ALKALINE PHOSPHATASE 259 U/L (45-117); ANION GAP 8 mmol/L (5-15); BILIRUBIN,TOTAL 0.5 mg/dL (0.2-1.0); CALCIUM 9.1 mg/dL (8.5-10.1); CREATININE 0.78 mg/dL (0.7-1.3); TOTAL PROTEIN 7.8 g/dL (6.4-8.2)
[2021-01-23 07:01] VITALS: BP 108/70
[2021-01-23] MEDS: DEXAMETHASONE INTENSOL 1 MG/ML ORAL SOL PO SCH ×2 (09:37→21:50)
[2021-01-23] MEDS ORDERED: BUPIVACAINE/PF 0.5% ONE (09:51)
[2021-01-23] MEDS ORDERED: EPINEPHRINE 1 MG/ML, 1ML ONE (09:51)
[2021-01-23] MEDS ORDERED: MIDAZOLAM 1 MG/ML, 2ML ONE (10:33)
[2021-01-23] MEDS ORDERED: FENTANYL PF 100 MCG/2ML ONE ×2 (10:34→12:29)
[2021-01-23] MEDS ORDERED: CHLORHEXIDINE 15 ML UDC ONE (10:51)
[2021-01-23] MEDS ORDERED: CHLORHEXIDINE 15 ML UDC PO ONE (11:00)
[2021-01-23] MEDS ORDERED: DEXAMETHASONE 4 MG/ML, 5ML ONE (11:04)
[2021-01-23] MEDS ORDERED: NEOSTIGMINE 1 MG/ML, 10ML ONE (11:04)
[2021-01-23] MEDS ORDERED: SUCCINYLCHOLINE 20 MG/ML, 10ML ONE (11:04)
[2021-01-23] MEDS ORDERED: ROCURONIUM 10 MG/ML,10ML ONE (11:04)
[2021-01-23] MEDS ORDERED: GLYCOPYRROLATE 0.2MG/1ML, 5ML ONE (11:04)
[2021-01-23] MEDS ORDERED: CEFAZOLIN 1,000 MG ONE (11:04)
[2021-01-23] MEDS ORDERED: PROPOFOL 10 MG/ML, 20ML ONE (11:04)
[2021-01-23] MEDS ORDERED: PHENYLEPHRINE 10 MG/ML ONE (11:04)
[2021-01-23] MEDS ORDERED: ONDANSETRON 2MG/ML, 2ML ONE (11:04)
[2021-01-23] MEDS ORDERED: OXYcodone 5 MG/5 ML ORAL.SOL UDC PO PRN (12:00)
[2021-01-23] MEDS ORDERED: LABETALOL 5MG/ML, 20ML IV PRN (12:00)
[2021-01-23] MEDS ORDERED: hydrALAzine 20 MG/ML, 1ML IV PRN (12:00)
[2021-01-23] MEDS ORDERED: DIPHENHYDRAMINE 50 MG/ML, 1ML IVPush PRN (12:00)
[2021-01-23] MEDS ORDERED: HALOPERIDOL 5 MG/ML IV PRN (12:00)
[2021-01-23] MEDS ORDERED: DIAZEPAM 5 MG/ML, 2ML IVPush PRN (12:00)
[2021-01-23] MEDS ORDERED: ACETAMINOPHEN 325 MG TABLET PO PRN (12:00)
[2021-01-23] MEDS ORDERED: FENTANYL PF 100 MCG/2ML IV PRN (12:00)
[2021-01-23] MEDS ORDERED: ALBUTEROL/IPRATROPIUM 2.5MG/0.5MG, 3 ML NPPB PRN (12:00)
[2021-01-23] MEDS ORDERED: METOCLOPRAMIDE 5 MG/ML, 2ML IVPush PRN (12:00)
[2021-01-23] MEDS ORDERED: HYDROmorphone 1 MG/ML, 1ML INJ IVPush PRN (12:00)
[2021-01-23] MEDS ORDERED: ONDANSETRON 2MG/ML, 2ML IVPush PRN (12:00)
[2021-01-23] MEDS ORDERED: MEPERIDINE/PF 25MG/0.5ML IVPush PRN (12:00)
[2021-01-23] MEDS ORDERED: PROMETHAZINE 25 MG/ML, 1ML IVPush PRN (12:00)
[2021-01-23] MEDS ORDERED: ALBUTEROL SULFATE 2.5 MG/3 ML NPPB PRN (12:00)
[2021-01-23] MEDS ORDERED: METOPROLOL 1 MG/ML, 5ML IV PRN (12:00)
[2021-01-23] MEDS ORDERED: EPHEDRINE 50 MG/ML, 1ML IVPush PRN (12:00)
[2021-01-23 13:23] VITALS: BP 137/94
[2021-01-23 19:14] VITALS: BP 114/73
[2021-01-23] MEDS: TRAZODONE 50MG TABLET PO SCH (21:50)
[2021-01-24 02:26] VITALS: BP 129/79
[2021-01-24] MEDS: D5%-LACTATED RINGERS 1,000 ML IV SCH ×3 (03:09→22:52)
[2021-01-24] MEDS: HYDROmorphone 1 MG/ML, 1ML INJ IV PRN ×6 (03:09→22:10)
[2021-01-24 06:53] VITALS: BP 124/82
[2021-01-24 07:07] LABS: BASOPHILS % (AUTO) 0 % (0-1); EOSINOPHILS % (AUTO) 0 % (1-7); LYMPHOCYTES % (AUTO) 7 % (22-44); MEAN CORPUSCULAR HEMOGLOBIN 28.2 pg (27.5-34.5); MEAN CORPUSCULAR HGB CONC 32.1 g/dL (33.2-36.2); MEAN PLATELET VOLUME 7.2 fL (7.4-10.4); MONOCYTES % (AUTO) 7 % (2-9); NEUTROPHILS % (AUTO) 86 % (42-75); PLATELET COUNT 559 x10^3/uL (130-400); RED BLOOD COUNT 4.69 x10^6/uL (4.38-5.82)
[2021-01-24 07:15] LABS: ALANINE AMINOTRANSFERASE 20 U/L (12-78); ALBUMIN 2.4 g/dL (3.4-5.0); ANION GAP 8 mmol/L (5-15); CALCIUM 8.9 mg/dL (8.5-10.1); CHLORIDE 100 mmol/L (98-107); CREATININE 0.82 mg/dL (0.7-1.3)
[2021-01-24 07:17] LABS: ALKALINE PHOSPHATASE 224 U/L (45-117); BILIRUBIN,TOTAL 0.6 mg/dL (0.2-1.0); TOTAL PROTEIN 7.1 g/dL (6.4-8.2)
[2021-01-24 07:38] LABS: MD SCAN
[2021-01-24] MEDS: FENTANYL REMOVE PATCH NOTE XX SCH (08:00)
[2021-01-24] MEDS: DEXAMETHASONE INTENSOL 1 MG/ML ORAL SOL PO SCH ×2 (08:44→22:49)
[2021-01-24] MEDS: FENTANYL 25 MCG PATCH TD SCH (08:45)
[2021-01-24] MEDS: HEPARIN 25,000 UNITS/250ML PMX 250 ML IV PRN (13:09)
[2021-01-24] MEDS ORDERED: HEPARIN 5,000 UNITS/ML, 1ML IV ONE (13:30)
[2021-01-24 13:44] VITALS: BP 131/88
[2021-01-24 18:43] VITALS: BP 136/84
[2021-01-24] MEDS: TRAZODONE 50MG TABLET PO SCH (22:49)
[2021-01-24] MEDS: APIXABAN 5 MG TABLET GT SCH (22:49)
[2021-01-25 01:21] VITALS: BP 139/89
[2021-01-25] MEDS: HYDROmorphone 1 MG/ML, 1ML INJ IV PRN ×6 (04:18→23:04)
[2021-01-25 05:15] LABS: BASOPHILS % (AUTO) 0 % (0-1); EOSINOPHILS % (AUTO) 0 % (1-7); LYMPHOCYTES % (AUTO) 6 % (22-44); MEAN CORPUSCULAR HEMOGLOBIN 28.4 pg (27.5-34.5); MEAN CORPUSCULAR HGB CONC 32.9 g/dL (33.2-36.2); MEAN PLATELET VOLUME 7.4 fL (7.4-10.4); MONOCYTES % (AUTO) 5 % (2-9); NEUTROPHILS % (AUTO) 88 % (42-75); PLATELET COUNT 634 x10^3/uL (130-400); RED BLOOD COUNT 4.37 x10^6/uL (4.38-5.82); RED CELL DISTRIBUTION WIDTH 14.8 % (9.4-14.8)
[2021-01-25 05:21] LABS: ALANINE AMINOTRANSFERASE 20 U/L (12-78); ALBUMIN 2.4 g/dL (3.4-5.0); ANION GAP 9 mmol/L (5-15); CALCIUM 8.6 mg/dL (8.5-10.1); CHLORIDE 101 mmol/L (98-107); CREATININE 0.73 mg/dL (0.7-1.3)
[2021-01-25 05:23] LABS: MD NO
[2021-01-25 05:25] LABS: ALKALINE PHOSPHATASE 225 U/L (45-117); BILIRUBIN,TOTAL 0.5 mg/dL (0.2-1.0); TOTAL PROTEIN 6.8 g/dL (6.4-8.2)
[2021-01-25 07:51] VITALS: BP 132/84
[2021-01-25] MEDS: DEXAMETHASONE INTENSOL 1 MG/ML ORAL SOL PO SCH ×2 (08:13→20:59)
[2021-01-25] MEDS: APIXABAN 5 MG TABLET GT SCH ×2 (08:13→20:59)
[2021-01-25] MEDS: D5%-LACTATED RINGERS 1,000 ML IV SCH ×2 (08:13→17:47)
--- NOTE | 2021-01-25 10:48 | NUR ---
tube feeding: Jevity 1.5 goal: 65 ml/hr Addendum: 01/25/21 at [address] Amended: Links added.
[2021-01-25] MEDS ORDERED: LACTULOSE 20 GM/30 ML UDC PO STA (11:22)
[2021-01-25 12:31] VITALS: BP 139/90
[2021-01-25 19:52] VITALS: BP 132/86
[2021-01-25] MEDS: TRAZODONE 50MG TABLET PO SCH (20:59)
[2021-01-26] MEDS: HYDROmorphone 1 MG/ML, 1ML INJ IV PRN (02:49)
[2021-01-26 02:51] VITALS: BP 128/86
[2021-01-26] MEDS: D5%-LACTATED RINGERS 1,000 ML IV SCH (02:59)
[2021-01-26 04:49] LABS: BASOPHILS % (AUTO) 1 % (0-1); EOSINOPHILS % (AUTO) 0 % (1-7); LYMPHOCYTES % (AUTO) 7 % (22-44); MEAN CORPUSCULAR HEMOGLOBIN 28.3 pg (27.5-34.5); MEAN CORPUSCULAR HGB CONC 32.7 g/dL (33.2-36.2); MEAN PLATELET VOLUME 7.3 fL (7.4-10.4); MONOCYTES % (AUTO) 6 % (2-9); NEUTROPHILS % (AUTO) 87 % (42-75); PLATELET COUNT 651 x10^3/uL (130-400); RED BLOOD COUNT 4.58 x10^6/uL (4.38-5.82)
[2021-01-26 04:52] LABS: MD NO
[2021-01-26 05:00] LABS: ALANINE AMINOTRANSFERASE 23 U/L (12-78); ALBUMIN 2.5 g/dL (3.4-5.0); ANION GAP 9 mmol/L (5-15); CALCIUM 8.6 mg/dL (8.5-10.1); CHLORIDE 98 mmol/L (98-107); CREATININE 0.66 mg/dL (0.7-1.3)
[2021-01-26 05:02] LABS: ALKALINE PHOSPHATASE 285 U/L (45-117); BILIRUBIN,TOTAL 0.4 mg/dL (0.2-1.0); TOTAL PROTEIN 6.9 g/dL (6.4-8.2)
[2021-01-26 07:53] VITALS: BP 136/81
[2021-01-26] MEDS: DEXAMETHASONE INTENSOL 1 MG/ML ORAL SOL PO SCH (09:52)
[2021-01-26] MEDS: APIXABAN 5 MG TABLET GT SCH ×2 (09:52→20:27)
[2021-01-26] MEDS ORDERED: DOCUSATE 100 MG CAPSULE PO SCH (12:00)
[2021-01-26] MEDS ORDERED: DEXAMETHASONE 4 MG TABLET PO SCH ×2 (12:00)
[2021-01-26] MEDS ORDERED: DOCUSATE 50 MG/5 ML, 10ML UDC PO SCH (12:00)
[2021-01-26] MEDS: OXYcodone 5 MG/5 ML ORAL.SOL UDC GT PRN ×3 (12:24→20:26)
[2021-01-26] MEDS: DOCUSATE 50 MG/5 ML, 10ML UDC GT SCH ×2 (12:30→20:26)
[2021-01-26] MEDS ORDERED: DOCUSATE 100 MG CAPSULE GT SCH (12:30)
[2021-01-26] MEDS: ACETAMINOPHEN 325 MG TABLET PO PRN (14:58)
[2021-01-26 19:35] VITALS: BP 144/91
[2021-01-26] MEDS: TRAZODONE 50MG TABLET PO SCH (20:26)
[2021-01-26] MEDS ORDERED: DOCUSATE 50 MG/5 ML, 10ML UDC GT SCH (21:00)
[2021-01-27 00:57] VITALS: BP 122/84
[2021-01-27] MEDS: OXYcodone 5 MG/5 ML ORAL.SOL UDC GT PRN ×5 (02:06→20:17)
[2021-01-27] MEDS: FENTANYL REMOVE PATCH NOTE XX SCH (08:00)
[2021-01-27 08:11] VITALS: BP 121/79
[2021-01-27] MEDS: FENTANYL 25 MCG PATCH TD SCH (09:20)
[2021-01-27] MEDS: MAGNESIUM HYDROXIDE 8%, 30ML UDC PO SCH (09:22)
[2021-01-27] MEDS: DOCUSATE 50 MG/5 ML, 10ML UDC GT SCH ×2 (09:22→20:18)
[2021-01-27] MEDS: DEXAMETHASONE INTENSOL 1 MG/ML ORAL SOL PO SCH (09:22)
[2021-01-27] MEDS: APIXABAN 5 MG TABLET GT SCH ×2 (09:22→20:18)
[2021-01-27 12:12] VITALS: BP 136/92
[2021-01-27 18:31] VITALS: BP 115/78
[2021-01-27] MEDS: TRAZODONE 50MG TABLET PO SCH (20:17)
[2021-01-27] MEDS: LACTULOSE 20 GM/30 ML UDC PO PRN (20:18)
[2021-01-28 00:23] VITALS: BP 110/74
[2021-01-28] MEDS: OXYcodone 5 MG/5 ML ORAL.SOL UDC GT PRN ×3 (06:07→17:44)
[2021-01-28 06:35] VITALS: BP 97/62
[2021-01-28] MEDS: MAGNESIUM HYDROXIDE 8%, 30ML UDC PO SCH (09:28)
[2021-01-28] MEDS: ACETAMINOPHEN 325 MG TABLET PO PRN (09:28)
[2021-01-28] MEDS: DOCUSATE 50 MG/5 ML, 10ML UDC GT SCH (09:28)
[2021-01-28] MEDS: APIXABAN 5 MG TABLET GT SCH (09:28)
[2021-01-28] MEDS: DEXAMETHASONE INTENSOL 1 MG/ML ORAL SOL PO SCH (09:43)
[2021-01-28] MEDS: LACTULOSE 20 GM/30 ML UDC PO PRN (11:07)
[2021-01-28 14:00] VITALS: BP 113/81
[2021-01-28] MEDS ORDERED: APIX5TAB PO (16:33)
[2021-01-28] MEDS ORDERED: APIX5TAB GT (16:33)
[2021-01-28] MEDS ORDERED: FENT1PAT75 TD ×2 (16:33→16:37)
[2021-01-28] MEDS ORDERED: DEXA0.5D PO (16:33)
[2021-01-28] MEDS ORDERED: Fentanyl Remove Patch XX (16:33)
[2021-01-28] MEDS ORDERED: DOCU50LI26 GT (16:33)
[2021-01-28] MEDS ORDERED: OXYC5SOL8 GT ×2 (16:33→16:37)
[2021-01-28] MEDS ORDERED: LACT20SO13 PO (16:33)
== END 2021-01-28 18:10 | disposition home or self-care (01) | DRG 823 ==
LOC: ED 14:51 → EDIP 15:13 → SUATTDRO 15:17 → 5SO 17:10 → 3N 01-12 15:30 → 4NW 01-12 15:31
PROVIDERS: ADMIT Hospitalist; ATTEND Internal Medicine
PROC: 0CJY8ZZ Inspection of Mouth and Throat, Via Natural or Artificial Opening Endoscopic (ICD-10-PCS; 2021-01-11)
PROC: 0N9 Head and Facial Bones, Drainage (ICD-10-PCS; principal; 2021-01-15)
PROC: 0DH63UZ Insertion of Feeding Device into Stomach, Percutaneous Approach (ICD-10-PCS; 2021-01-15)
PROC: 0DBP8ZX Excision of Rectum, Via Natural or Artificial Opening Endoscopic, Diagnostic (ICD-10-PCS; 2021-01-21)
PROC: 0D9640Z Drainage of Stomach with Drainage Device, Percutaneous Endoscopic Approach (ICD-10-PCS; 2021-01-23)
DX: C77.9 Secondary and unspecified malignant neoplasm of lymph node, unspecified (principal); G08 Intracranial and intraspinal phlebitis and thrombophlebitis; I26.99 Other pulmonary embolism without acute cor pulmonale; C20 Malignant neoplasm of rectum; C78.7 Secondary malignant neoplasm of liver and intrahepatic bile duct; C78.00 Secondary malignant neoplasm of unspecified lung; D68.69 Other thrombophilia; I87.1 Compression of vein; K92.1 Melena; E87.1 Hypo-osmolality and hyponatremia; Z20.822 Contact with and (suspected) exposure to COVID-19; D18.00 Hemangioma unspecified site; D49.2 Neoplasm of unspecified behavior of bone, soft tissue, and skin; D72.829 Elevated white blood cell count, unspecified; F10.10 Alcohol abuse, uncomplicated; R29.700 NIHSS score 0; F15.10 Other stimulant abuse, uncomplicated; F17.210 Nicotine dependence, cigarettes, uncomplicated; K14.8 Other diseases of tongue; M50.321 Other cervical disc degeneration at C4-C5 level; M84.88 Other disorders of continuity of bone, other site; R13.12 Dysphagia, oropharyngeal phase; D63.8 Anemia in other chronic diseases classified elsewhere; K59.00 Constipation, unspecified; T38.0X5A Adverse effect of glucocorticoids and synthetic analogues, initial encounter; R97.0 Elevated carcinoembryonic antigen [CEA]; Z79.01 Long term (current) use of anticoagulants; Z79.899 Other long term (current) drug therapy; Z79.891 Long term (current) use of opiate analgesic
CPT/HCPCS: 36415; 74018; 74230; 99285; A9575; J3490; J7121; S0020; 62267; 70450; 70491; 70543; 70544; 70549; 70551; 70552; 71045; 72125; 74177; 76700; 77012; 80048; 80053; 80061; 80069; 80076; 80307; 82040; 82272; 82378; 82962; 83036; 83690; 83735; 84100; 84443; 84484; 85014; 85018; 85025; 85049; 85520; 85610; 85730; 87635; 88305; 93005; 99152; 99153; 99156; 99157; B4087; G0378; J0171; J0690; J1100; J1170; J1644; J1650; J2250; J2405; J2704; J2710; J3010; Q0162; Q9967; 92522-GN; 92523-GN; J0330; J2270; J2310; J2370; J7120

== ENCOUNTER 2021-02-05 10:40 | Inpatient (IN) | payer MEDICAID ==
[~2021-02-05] VITALS: Ht 175.3 cm; Wt 89.7 kg
[~2021-02-05 10:40] MED LIST changes: +APIX5TAB GT; +APIX5TAB PO; +DEXA0.5D PO; +DOCU50LI26 GT; +FENT1PAT75 TD; +Fentanyl Remove Patch XX; +HYDR-2214 PO; +LACT20SO13 PO; +OXYC5SOL8 GT
--- NOTE | 2021-02-05 10:58 | NUR ---
20 MG ETOMODATE AND 100 MG OF SUCCYNL CHOLINE FOR PREPARATION INTUBATION
--- NOTE | 2021-02-05 10:58 | NUR ---
IO ESABLISHED RIGHT LOWER EXTREMITY AND MEDICATED WITH FENTANYL 100 MCG PER ORDER WITH NORMAL SALINE ONE LITER BOLUS INFUSING ON PRESSURE BAG
[2021-02-05] MEDS ORDERED: SODIUM CHLORIDE FLUSH 10ML SYR IVF ONE (11:00)
[2021-02-05] MEDS ORDERED: PLEASE ENTER HEIGHT AND WEIGHT MC SCH (11:00)
[2021-02-05] MEDS ORDERED: SODIUM CHLORIDE 0.9% 1,000ML IVBOLUS ONE ×3 (11:00→11:30)
--- NOTE | 2021-02-05 11:01 | NUR ---
SUCCESSFUL INTUBATION 8.0 TUE, 25 LIP LINE. WITH C02 INDICATOR POSITIVE.
--- NOTE | 2021-02-05 11:05 | NUR ---
VENT SETTING: RR 16, TV 500, 100 PERCENT, 8 PEEP.
[2021-02-05 11:21] LABS: ALANINE AMINOTRANSFERASE 145 U/L (12-78); ALBUMIN 2.2 g/dL (3.4-5.0); ANION GAP 19 mmol/L (5-15); CALCIUM 9.3 mg/dL (8.5-10.1); CHLORIDE 97 mmol/L (98-107); CREATININE 3.89 mg/dL (0.7-1.3)
[2021-02-05 11:23] LABS: ALKALINE PHOSPHATASE 325 U/L (45-117); BILIRUBIN,TOTAL 2.1 mg/dL (0.2-1.0); TOTAL PROTEIN 8.6 g/dL (6.4-8.2)
[2021-02-05] MEDS: PROPOFOL 100 ML IV PRN ×2 (11:24→15:40)
[2021-02-05] MEDS ORDERED: SUCCINYLCHOLINE 20 MG/ML, 10ML IVPush ONE (11:30)
[2021-02-05] MEDS ORDERED: FENTANYL PF 100 MCG/2ML IVPush ONE ×2 (11:30→12:00)
[2021-02-05] MEDS ORDERED: ETOMIDATE 20 MG/10 ML IVPush ONE (11:30)
[2021-02-05] MEDS ORDERED: CALCIUM GLUCONATE 4.6 MEQ/10 ML IVPush ONE (11:30)
[2021-02-05 11:32] LABS: MEAN CORPUSCULAR HEMOGLOBIN 28.1 pg (27.5-34.5); MEAN CORPUSCULAR HGB CONC 32.1 g/dL (33.2-36.2); MEAN PLATELET VOLUME 7.9 fL (7.4-10.4); PLATELET COUNT 743 x10^3/uL (130-400); RED BLOOD COUNT 5.62 x10^6/uL (4.38-5.82); RED CELL DISTRIBUTION WIDTH 15.9 % (9.4-14.8)
[2021-02-05] MEDS ORDERED: LIDOCAINE-MPF 1%, 5ML ONE (11:44)
[2021-02-05] MEDS ORDERED: FENTANYL PF 100 MCG/2ML ONE ×3 (11:48→11:52)
[2021-02-05] MEDS ORDERED: CALCIUM GLUCONATE 4.6 MEQ/10 ML ONE (11:50)
[2021-02-05] MEDS ORDERED: INSULIN SINGLE DOSE, ER ONE (11:51)
[2021-02-05] MEDS ORDERED: PROPOFOL 10 MG/ML, 20ML ONE (11:52)
[2021-02-05] MEDS ORDERED: INSULIN REGULAR 100 UNITS/ML, 3ML VIAL IVPush ONE (12:00)
[2021-02-05] MEDS ORDERED: DEXTROSE 50%, 50ML SYRINGE IVPush ONE (12:00)
[2021-02-05 12:02] LABS: MD YES
[2021-02-05] MEDS ORDERED: DEXTROSE 50%, 50ML SYRINGE ONE ×2 (12:03→14:17)
[2021-02-05 12:06] LABS: BAND#(MANUAL) 4.58 x10^3/uL; BANDS%(MANUAL) 22 % (0-7); METAMYELOCYTES# (MANUAL) 0.21 x10^3/uL (0-0); METAMYELOCYTES% (MANUAL) 1 % (0-1); MONOS#(MANUAL) 1.87 x10^3/uL (0.3-2.7); MONOS% (MANUAL) 9 % (2-9)
[2021-02-05 12:07] LABS: LYMPH#(MANUAL) 1.87 x10^3/uL (1-3.4); LYMPHS% (MANUAL) 9 % (22-44); SEG#(MANUAL) 12.27 x10^3/uL (1.8-6.8); SEGS% (MANUAL) 59 % (42-75)
[2021-02-05 12:08] LABS: ANISOCYTOSIS 1+; POLYCHROMASIA 1+
[2021-02-05 12:09] LABS: PMNS WITH VACUOLES 1+
[2021-02-05 12:10] LABS: <PLATELET ESTIMATE> INCREASED; <PLT MORPHOLOGY> NORMAL PLT MORPH
--- NOTE | 2021-02-05 12:40 | NUR ---
CENTRAL LINE LEFT IJ PLACED BY DR LINN. PT NOTED TO DEVELOP GURGLING AND SUCTIONED MULTIPLE TIMES WITH NO IMPROVEMENT OXYGEN SATURATION REMAINS 98 PERCENT WITH C02 24. RT CONTACTED.
[2021-02-05] MEDS ORDERED: ACETAMINOPHEN 650 MG SUPP PR ONE (13:00)
[2021-02-05] MEDS ORDERED: PIPERACILLIN/TAZO/PMX 3.375GM 50 ML IV ONE (13:00)
[2021-02-05 13:03] LABS: MICROSCOPIC INDICATED
[2021-02-05] MEDS ORDERED: PIPERACILLIN/TAZO/PMX 3.375GM 50 ML ONE (13:06)
--- NOTE | 2021-02-05 13:10 | NUR ---
PT REINTUBATED CUFF APPEARS TO HAVE LEAK. 8.0 TUBE USED, 25 LIP LINE. 170 PROPOFOL GIVEN IN INCREMENTS FOR SEDATION
[2021-02-05] MEDS ORDERED: PROPOFOL 10 MG/ML, 20ML IVPush ONE ×2 (13:30→14:00)
[2021-02-05] MEDS ORDERED: ACETAMINOPHEN 650 MG SUPP ONE (13:36)
--- NOTE | 2021-02-05 14:18 | NUR ---
FINGERSTICK 68. PT ONTO [facility] MATTRESS AFTER POST INTUBATION COMPLETED.
--- NOTE | 2021-02-05 14:25 | NUR ---
RR 20, TV 550, 100 PERCENT IN RESPONSE TO ABG.
--- NOTE | 2021-02-05 14:25 | NUR ---
REPORT TO ABELARDO GILES FROM ICU. PT TO REMAIN IN ER WHILE AWAITING ROOM ASSIGNMENT
[2021-02-05] MEDS ORDERED: DEXTROSE 5% 1,000 ML IV SCH (14:30)
[2021-02-05] MEDS ORDERED: DEXTROSE 50%, 50ML VIAL IVPush ONE (14:30)
--- NOTE | 2021-02-05 14:37 | NUR ---
SPOKE WITH DAVE MONTOYA [phone]. STATES PT STARTED GETTING SICK LAST NIGHT. STATES SHE IS HIS . STATES SHE AND HER MOTHER ARE HIS ONLY FAMILY. STATES SHE WILL COME TO HOSPITAL WHEN SHE GETS A RIDE.
[2021-02-05 14:45] VITALS: BP 157/86
[2021-02-05 15:10] VITALS: BP 151/98
[2021-02-05 15:30] VITALS: BP 235/61
[2021-02-05] MEDS ORDERED: HYDROmorphone 1 MG/ML, 1ML INJ ONE (15:35)
[2021-02-05] MEDS ORDERED: PROPOFOL 100 ML IV ONE (15:35)
[2021-02-05 15:45] VITALS: BP 88/55
[2021-02-05 16:00] VITALS: BP 92/62
[2021-02-05] MEDS ORDERED: HYDROmorphone 1 MG/ML, 1ML INJ IV ONE (16:00)
--- NOTE | 2021-02-05 16:14 | NUR ---
RN OTOLARYNGOLOGY: RT PAGED FOR TRANSPORT. UNABLE TO COME TO DEPT FOR 15-20 MINS
[2021-02-05] MEDS ORDERED: SODIUM CHLORIDE 0.9% 1,000 ML IV SCH (16:30)
[2021-02-05] MEDS ORDERED: VANCOMYCIN PER PHARMACY MC PRN (16:30)
[2021-02-05] MEDS ORDERED: Fentanyl Remove Patch TP SCH (16:30)
[2021-02-05] MEDS ORDERED: FENTANYL 25 MCG PATCH TD SCH (16:30)
[2021-02-05] MEDS ORDERED: DEXTROSE 50%, 50ML SYRINGE IVPush PRN (17:00)
[2021-02-05] MEDS ORDERED: GLUCAGON 1 MG IM PRN (17:00)
[2021-02-05] MEDS ORDERED: DEXTROSE 4 GM TAB.CHEW PO PRN (17:00)
[2021-02-05] MEDS: D5%-0.45% NACL 1,000 ML IV SCH (17:40)
[2021-02-05] MEDS: HEPARIN 25,000 UNITS/250ML PMX 250 ML IV PRN (17:53)
[2021-02-05] MEDS ORDERED: HEPARIN 5,000 UNITS/ML, 1ML IV ONE (18:00)
[2021-02-05] MEDS ORDERED: PHARMACOKINETIC CONSULTATION MC ONE (18:00)
[2021-02-05] MEDS ORDERED: PHARMACOKINETIC MONITORING MC PRN (18:00)
[2021-02-05] MEDS ORDERED: LIDOCAINE-MPF 2% ,5ML ONE (18:00)
[2021-02-05] MEDS ORDERED: VANCOMYCIN 1,900 MG in SODIUM CHLORIDE 0.9% 250 ML IV ONE (18:00)
[2021-02-05 18:03] LABS: AMPHETAMINE SCREEN, URINE Positive (Negative); BARBITURATE SCREEN, URINE Negative (Negative); BENZODIAZEPINE SCREEN, URINE Negative (Negative); CANNABINOID SCREEN, URINE Positive (Negative); COCAINE SCREEN, URINE Negative (Negative); METHADONE SCREEN, URINE Negative (Negative); OPIATE SCREEN, URINE Positive (Negative)
[2021-02-05 19:49] LABS: ANION GAP 14 mmol/L (5-15); CALCIUM 8.6 mg/dL (8.5-10.1); CHLORIDE 102 mmol/L (98-107); CREATININE 3.77 mg/dL (0.7-1.3)
[2021-02-05] MEDS ORDERED: ACETAMINOPHEN 325 MG TABLET PO PRN (20:30)
[2021-02-05] MEDS: PIPERACILLIN/TAZO/PMX 2.25GM 50 ML IVPB SCH (20:46)
[2021-02-05] MEDS: NOREPINEPHRINE 8 MG in SODIUM CHLORIDE 0.9% 242 ML IV PRN (20:47)
[2021-02-05] MEDS: SODIUM CHLORIDE FLUSH 10ML SYR IVF SCH (21:00)
[2021-02-05 22:50] LABS: ALBUMIN 1.8 g/dL (3.4-5.0); ANION GAP 11 mmol/L (5-15); CALCIUM 8.6 mg/dL (8.5-10.1); CHLORIDE 102 mmol/L (98-107); CREATININE 4.09 mg/dL (0.7-1.3)
[2021-02-05] MEDS ORDERED: SODIUM ZIRCONIUM CYCLOSILICATE 5 GM PO ONE (23:30)
[2021-02-06] MEDS: D5%-0.45% NACL 1,000 ML IV SCH ×3 (03:00→23:00)
[2021-02-06] MEDS: PIPERACILLIN/TAZO/PMX 2.25GM 50 ML IVPB SCH ×3 (05:10→20:38)
[2021-02-06 06:16] LABS: MEAN CORPUSCULAR HEMOGLOBIN 27.9 pg (27.5-34.5); MEAN CORPUSCULAR HGB CONC 32.3 g/dL (33.2-36.2); MEAN PLATELET VOLUME 7.4 fL (7.4-10.4); PLATELET COUNT 575 x10^3/uL (130-400); RED BLOOD COUNT 4.38 x10^6/uL (4.38-5.82); RED CELL DISTRIBUTION WIDTH 16.3 % (9.4-14.8)
[2021-02-06 06:33] LABS: CHLORIDE 101 mmol/L (98-107)
[2021-02-06 06:40] LABS: ALBUMIN 1.7 g/dL (3.4-5.0); ANION GAP 15 mmol/L (5-15); CALCIUM 8.3 mg/dL (8.5-10.1); CREATININE 4.23 mg/dL (0.7-1.3)
[2021-02-06 06:56] LABS: MD YES
[2021-02-06 07:04] LABS: <PLATELET ESTIMATE> INCREASED; <PLT MORPHOLOGY> NORMAL PLT MORPH; ANISOCYTOSIS 1+; BAND#(MANUAL) 4.83 x10^3/uL; BANDS%(MANUAL) 27 % (0-7); LYMPH#(MANUAL) 1.61 x10^3/uL (1-3.4); LYMPHS% (MANUAL) 9 % (22-44); METAMYELOCYTES# (MANUAL) 0.72 x10^3/uL (0-0); METAMYELOCYTES% (MANUAL) 4 % (0-1); MONOS% (MANUAL) 5 % (2-9); POLYCHROMASIA 1+; SEG#(MANUAL) 9.85 x10^3/uL (1.8-6.8); SEGS% (MANUAL) 55 % (42-75)
[2021-02-06 07:06] LABS: PMNS WITH VACUOLES 1+
[2021-02-06] MEDS: HEPARIN 5,000 UNITS/ML, 1ML IV PRN ×3 (08:18→23:00)
[2021-02-06] MEDS: FENTANYL PF 100 MCG/2ML IVPush PRN ×4 (08:44→20:39)
[2021-02-06] MEDS: ALBUMIN HUMAN 25% 100 ML IV SCH ×2 (08:44→09:58)
[2021-02-06] MEDS: SODIUM CHLORIDE FLUSH 10ML SYR IVF SCH ×2 (08:44→20:40)
[2021-02-06] MEDS: NOREPINEPHRINE 8 MG in SODIUM CHLORIDE 0.9% 242 ML IV PRN ×2 (11:18→23:15)
[2021-02-06] MEDS: PROPOFOL 100 ML IV PRN ×3 (11:18→23:14)
[2021-02-06] MEDS ORDERED: OMNIPAQUE 350 MG/ML, 50 ML BOTTLE ONE (13:49)
[2021-02-06 14:29] LABS: ANION GAP 15 mmol/L (5-15); CALCIUM 7.9 mg/dL (8.5-10.1); CHLORIDE 102 mmol/L (98-107); CREATININE 4.28 mg/dL (0.7-1.3)
[2021-02-06] MEDS: HEPARIN 25,000 UNITS/250ML PMX 250 ML IV PRN (17:05)
[2021-02-07] MEDS: PIPERACILLIN/TAZO/PMX 2.25GM 50 ML IVPB SCH ×3 (05:19→20:12)
[2021-02-07] MEDS: FENTANYL PF 100 MCG/2ML IVPush PRN (05:20)
[2021-02-07 06:03] LABS: MEAN CORPUSCULAR HEMOGLOBIN 27.5 pg (27.5-34.5); MEAN CORPUSCULAR HGB CONC 32.1 g/dL (33.2-36.2); MEAN PLATELET VOLUME 7.5 fL (7.4-10.4); PLATELET COUNT 463 x10^3/uL (130-400); RED BLOOD COUNT 3.86 x10^6/uL (4.38-5.82); RED CELL DISTRIBUTION WIDTH 16.3 % (9.4-14.8)
[2021-02-07 06:07] LABS: MD YES
[2021-02-07 06:09] LABS: ANION GAP 13 mmol/L (5-15); CALCIUM 7.8 mg/dL (8.5-10.1); CHLORIDE 102 mmol/L (98-107)
[2021-02-07 06:14] LABS: ALANINE AMINOTRANSFERASE 101 U/L (12-78); ALKALINE PHOSPHATASE 241 U/L (45-117); BILIRUBIN,TOTAL 3.2 mg/dL (0.2-1.0); CREATININE 4.15 mg/dL (0.7-1.3)
[2021-02-07 06:34] LABS: BANDS%(MANUAL) 18 % (0-7); MONOS#(MANUAL) 0.57 x10^3/uL (0.3-2.7); MONOS% (MANUAL) 3 % (2-9)
[2021-02-07 06:35] LABS: <PLATELET ESTIMATE> INCREASED; <PLT MORPHOLOGY> NORMAL PLT MORPH; ANISOCYTOSIS 1+; LYMPH#(MANUAL) 0.38 x10^3/uL (1-3.4); LYMPHS% (MANUAL) 2 % (22-44); POLYCHROMASIA 1+; SEG#(MANUAL) 14.55 x10^3/uL (1.8-6.8); SEGS% (MANUAL) 77 % (42-75)
[2021-02-07 06:36] LABS: TOXIC GRAN 1+
[2021-02-07] MEDS: D5%-0.45% NACL 1,000 ML IV SCH ×2 (09:19→20:12)
[2021-02-07] MEDS: FOLIC ACID 1 MG TABLET PO SCH (09:19)
[2021-02-07] MEDS: NOREPINEPHRINE 8 MG in SODIUM CHLORIDE 0.9% 242 ML IV PRN (09:20)
[2021-02-07] MEDS: THIAMINE 100MG TABLET PO SCH (09:20)
[2021-02-07] MEDS: SODIUM CHLORIDE FLUSH 10ML SYR IVF SCH ×2 (09:20→20:12)
[2021-02-07] MEDS: HEPARIN 25,000 UNITS/250ML PMX 250 ML IV PRN (13:52)
--- NOTE | 2021-02-07 14:30 | NUR ---
TF per RD: Vital AF 1.2 @10mL/hr trickle feeds until medically appropriate and pressors are weaned down to <5-8mcg/min Addendum: 02/07/21 at [address] Amended: Links added.
[2021-02-07] MEDS: PROPOFOL 100 ML IV PRN (14:33)
[2021-02-07] MEDS: HEPARIN 5,000 UNITS/ML, 1ML IV PRN ×2 (15:00→23:22)
[2021-02-08] MEDS: FENTANYL PF 100 MCG/2ML IVPush PRN ×6 (00:54→23:09)
[2021-02-08] MEDS: PIPERACILLIN/TAZO/PMX 2.25GM 50 ML IVPB SCH ×2 (05:50→13:10)
[2021-02-08 06:11] LABS: MEAN CORPUSCULAR HEMOGLOBIN 27.3 pg (27.5-34.5); MEAN CORPUSCULAR HGB CONC 31.9 g/dL (33.2-36.2); PLATELET COUNT 414 x10^3/uL (130-400); RED BLOOD COUNT 3.86 x10^6/uL (4.38-5.82); RED CELL DISTRIBUTION WIDTH 16.8 % (9.4-14.8)
[2021-02-08 06:20] LABS: ALANINE AMINOTRANSFERASE 84 U/L (12-78); ALBUMIN 1.8 g/dL (3.4-5.0); ANION GAP 14 mmol/L (5-15); CALCIUM 7.6 mg/dL (8.5-10.1); CHLORIDE 103 mmol/L (98-107); CREATININE 4.12 mg/dL (0.7-1.3)
[2021-02-08 06:22] LABS: ALKALINE PHOSPHATASE 264 U/L (45-117); BILIRUBIN,TOTAL 3.4 mg/dL (0.2-1.0); TOTAL PROTEIN 6.9 g/dL (6.4-8.2)
[2021-02-08] MEDS ORDERED: CLINDAMYCIN PMX 900MG/50ML 50 ML IV SCH (06:30)
[2021-02-08 06:41] LABS: MD YES
[2021-02-08 06:42] LABS: BANDS%(MANUAL) 8 % (0-7); LYMPH#(MANUAL) 1.19 x10^3/uL (1-3.4); LYMPHS% (MANUAL) 5 % (22-44); MONOS#(MANUAL) 0.48 x10^3/uL (0.3-2.7); MONOS% (MANUAL) 2 % (2-9); SEG#(MANUAL) 20.23 x10^3/uL (1.8-6.8); SEGS% (MANUAL) 85 % (42-75)
[2021-02-08 06:43] LABS: ANISOCYTOSIS 1+; POLYCHROMASIA 1+
[2021-02-08 06:44] LABS: TOXIC GRAN 1+
[2021-02-08 06:45] LABS: <PLATELET ESTIMATE> INCREASED; <PLT MORPHOLOGY> NORMAL PLT MORPH
[2021-02-08] MEDS: NOREPINEPHRINE 8 MG in SODIUM CHLORIDE 0.9% 242 ML IV PRN ×2 (09:51→20:26)
[2021-02-08] MEDS: D5%-0.45% NACL 1,000 ML IV SCH (09:57)
[2021-02-08] MEDS: FOLIC ACID 1 MG TABLET PO SCH (09:58)
[2021-02-08] MEDS: PANTOPRAZOLE 40 MG IV IVPush SCH (09:58)
[2021-02-08] MEDS: THIAMINE 100MG TABLET PO SCH (09:58)
[2021-02-08] MEDS: SODIUM CHLORIDE FLUSH 10ML SYR IVF SCH ×2 (09:59→20:04)
--- NOTE | 2021-02-08 11:16 | NUR ---
TF per RD recs (02/08): Recommend to hold TF's if levophed >8mcg/min. Patient may need TPN if levophed remains >8kmcg/min. Addendum: 02/08/21 at [address] Amended: Links added.
[2021-02-08] MEDS ORDERED: TPN PER PHARMACY MC PRN (15:30)
[2021-02-08] MEDS: CEFAZOLIN PMX 2GM/50ML 50 ML IVPB SCH ×2 (15:32→23:14)
[2021-02-08] MEDS: PROPOFOL 100 ML IV PRN (15:38)
[2021-02-08] MEDS ORDERED: SMOF TPN IV SCH (16:00)
[2021-02-08] MEDS ORDERED: FAT EMUL IV SCH (16:00)
[2021-02-08] MEDS ORDERED: [UNRECOGNIZED DRUG - OTHER] IV SCH (16:00)
[2021-02-08] MEDS ORDERED: AMINO ACID 15% IV SCH (16:00)
[2021-02-08] MEDS ORDERED: DEXTROSE 70% IV SCH (16:00)
[2021-02-08] MEDS ORDERED: DEXTROSE 10% 500 ML IV PRN (17:00)
[2021-02-08] MEDS: HEPARIN 25,000 UNITS/250ML PMX 250 ML IV PRN (18:14)
[2021-02-08] MEDS: INSULIN REGULAR LOW DOSE Q6H X 48HRS SQ-INSULIN SCH (20:03)
[2021-02-08] MEDS: HEPARIN 5,000 UNITS/ML, 1ML IV PRN (22:59)
[2021-02-09] MEDS: PROPOFOL 100 ML IV PRN ×3 (02:19→15:38)
[2021-02-09] MEDS: INSULIN REGULAR LOW DOSE Q6H X 48HRS SQ-INSULIN SCH ×4 (03:24→21:22)
[2021-02-09] MEDS: FENTANYL PF 100 MCG/2ML IVPush PRN ×6 (04:09→23:00)
[2021-02-09] MEDS: D5%-0.45% NACL 1,000 ML IV SCH (04:25)
[2021-02-09 05:17] LABS: CHLORIDE 103 mmol/L (98-107)
[2021-02-09 05:21] LABS: MEAN CORPUSCULAR HEMOGLOBIN 27.6 pg (27.5-34.5); MEAN CORPUSCULAR HGB CONC 32.4 g/dL (33.2-36.2); MEAN PLATELET VOLUME 7.4 fL (7.4-10.4); PLATELET COUNT 399 x10^3/uL (130-400); RED BLOOD COUNT 3.66 x10^6/uL (4.38-5.82); RED CELL DISTRIBUTION WIDTH 16.7 % (9.4-14.8)
[2021-02-09 05:26] LABS: ALANINE AMINOTRANSFERASE 59 U/L (12-78); ALBUMIN 1.5 g/dL (3.4-5.0); ALKALINE PHOSPHATASE 245 U/L (45-117); ANION GAP 14 mmol/L (5-15); BILIRUBIN,TOTAL 3.1 mg/dL (0.2-1.0); CREATININE 4.31 mg/dL (0.7-1.3); TOTAL PROTEIN 6.7 g/dL (6.4-8.2); TRIGLYCERIDES 338 mg/dL (50-200)
[2021-02-09 05:27] LABS: PREALBUMIN < 3.0 mg/dL (20.0-40.0)
[2021-02-09 05:56] LABS: MD YES
[2021-02-09 05:58] LABS: BAND#(MANUAL) 1.24 x10^3/uL; BANDS%(MANUAL) 5 % (0-7); EOS#(MANUAL) 0.25 x10^3/uL (0.0-0.4); EOS% (MANUAL) 1 % (1-7); LYMPH#(MANUAL) 0.74 x10^3/uL (1-3.4); LYMPHS% (MANUAL) 3 % (22-44); METAMYELOCYTES# (MANUAL) 0.25 x10^3/uL (0-0); METAMYELOCYTES% (MANUAL) 1 % (0-1); MONOS#(MANUAL) 0.49 x10^3/uL (0.3-2.7); MONOS% (MANUAL) 2 % (2-9); MYELOCYTES# (MANUAL) 0.49 x10^3/uL (0-0); MYELOCYTES% (MANUAL) 2 % (0-0); SEG#(MANUAL) 21.24 x10^3/uL (1.8-6.8); SEGS% (MANUAL) 86 % (42-75)
[2021-02-09 05:59] LABS: <PLATELET ESTIMATE> ADEQUATE; <PLT MORPHOLOGY> NORMAL PLT MORPH; ANISOCYTOSIS 1+; POLYCHROMASIA 1+; TOXIC GRAN 1+
[2021-02-09] MEDS: HEPARIN 25,000 UNITS/250ML PMX 250 ML IV PRN ×2 (06:32→17:37)
[2021-02-09] MEDS: HEPARIN 5,000 UNITS/ML, 1ML IV PRN ×3 (06:32→21:58)
[2021-02-09] MEDS: NOREPINEPHRINE 8 MG in SODIUM CHLORIDE 0.9% 242 ML IV PRN ×2 (06:33→15:38)
[2021-02-09] MEDS: CEFAZOLIN PMX 2GM/50ML 50 ML IVPB SCH ×2 (06:33→15:38)
[2021-02-09] MEDS: PANTOPRAZOLE 40 MG IV IVPush SCH (08:56)
[2021-02-09] MEDS: SODIUM CHLORIDE FLUSH 10ML SYR IVF SCH ×2 (08:57→21:22)
[2021-02-09] MEDS ORDERED: SMOF TPN IV SCH ×2 (17:00)
[2021-02-09] MEDS ORDERED: [UNRECOGNIZED DRUG - OTHER] IV SCH ×2 (17:00)
[2021-02-09] MEDS ORDERED: DEXTROSE 70% IV SCH ×2 (17:00)
[2021-02-09] MEDS ORDERED: FAT EMUL IV SCH ×2 (17:00)
[2021-02-09] MEDS ORDERED: AMINO ACID 15% IV SCH ×2 (17:00)
[2021-02-10] MEDS: PROPOFOL 100 ML IV PRN ×4 (00:42→22:11)
[2021-02-10] MEDS: FENTANYL PF 100 MCG/2ML IVPush PRN ×8 (01:34→23:49)
[2021-02-10] MEDS: D5%-0.45% NACL 1,000 ML IV SCH (02:18)
[2021-02-10] MEDS: NOREPINEPHRINE 8 MG in SODIUM CHLORIDE 0.9% 242 ML IV PRN ×3 (02:19→23:45)
[2021-02-10] MEDS: CEFAZOLIN PMX 1GM/50ML 50 ML IVPB SCH ×2 (02:33→16:38)
[2021-02-10] MEDS: INSULIN REGULAR LOW DOSE Q6H X 48HRS SQ-INSULIN SCH ×3 (03:11→15:00)
[2021-02-10] MEDS: HEPARIN 25,000 UNITS/250ML PMX 250 ML IV PRN ×2 (05:00→12:41)
[2021-02-10 05:36] LABS: ALBUMIN 1.3 g/dL (3.4-5.0); ANION GAP 15 mmol/L (5-15); CALCIUM 7.1 mg/dL (8.5-10.1); CHLORIDE 101 mmol/L (98-107)
[2021-02-10 05:40] LABS: ALANINE AMINOTRANSFERASE 16 U/L (12-78); ALKALINE PHOSPHATASE 226 U/L (45-117); BILIRUBIN,TOTAL 2.5 mg/dL (0.2-1.0); CREATININE 4.56 mg/dL (0.7-1.3); TOTAL PROTEIN 6.4 g/dL (6.4-8.2)
[2021-02-10 05:42] LABS: MEAN CORPUSCULAR HEMOGLOBIN 27.2 pg (27.5-34.5); MEAN PLATELET VOLUME 7.6 fL (7.4-10.4); PLATELET COUNT 358 x10^3/uL (130-400); RED BLOOD COUNT 3.52 x10^6/uL (4.38-5.82); RED CELL DISTRIBUTION WIDTH 17.1 % (9.4-14.8)
[2021-02-10 06:02] LABS: MD YES
[2021-02-10 06:07] LABS: <PLATELET ESTIMATE> ADEQUATE; <PLT MORPHOLOGY> NORMAL PLT MORPH; ANISOCYTOSIS 1+; BAND#(MANUAL) 1.52 x10^3/uL; BANDS%(MANUAL) 6 % (0-7); EOS#(MANUAL) 0.25 x10^3/uL (0.0-0.4); EOS% (MANUAL) 1 % (1-7); LYMPH#(MANUAL) 1.01 x10^3/uL (1-3.4); LYMPHS% (MANUAL) 4 % (22-44); METAMYELOCYTES# (MANUAL) 0.25 x10^3/uL (0-0); METAMYELOCYTES% (MANUAL) 1 % (0-1); MONOS#(MANUAL) 0.25 x10^3/uL (0.3-2.7); MONOS% (MANUAL) 1 % (2-9); MYELOCYTES# (MANUAL) 0.51 x10^3/uL (0-0); MYELOCYTES% (MANUAL) 2 % (0-0); POLYCHROMASIA 1+; SEG#(MANUAL) 21.51 x10^3/uL (1.8-6.8); SEGS% (MANUAL) 85 % (42-75); TOXIC GRAN 1+
[2021-02-10] MEDS: SODIUM CHLORIDE FLUSH 10ML SYR IVF SCH ×2 (09:20→20:33)
[2021-02-10] MEDS: PANTOPRAZOLE 40 MG IV IVPush SCH (09:20)
[2021-02-10] MEDS: FILTER, DISP 1.2 MICRON FOR TPN/PVN IV PRN (16:38)
[2021-02-10] MEDS ORDERED: [UNRECOGNIZED DRUG - OTHER] IV SCH (17:00)
[2021-02-10] MEDS ORDERED: SMOF TPN IV SCH (17:00)
[2021-02-10] MEDS ORDERED: DEXTROSE 70% IV SCH (17:00)
[2021-02-10] MEDS ORDERED: AMINO ACID 15% IV SCH (17:00)
[2021-02-10] MEDS ORDERED: FAT EMUL IV SCH (17:00)
[2021-02-10] MEDS: INSULIN REGULAR LOW DOSE QDAY SQ-INSULIN SCH (20:33)
[2021-02-11] MEDS: FENTANYL PF 100 MCG/2ML IVPush PRN ×2 (01:31→04:24)
[2021-02-11] MEDS: HEPARIN 25,000 UNITS/250ML PMX 250 ML IV PRN ×2 (02:08→12:17)
[2021-02-11] MEDS: CEFAZOLIN PMX 1GM/50ML 50 ML IVPB SCH ×2 (03:05→16:02)
[2021-02-11 04:29] LABS: MEAN PLATELET VOLUME 7.4 fL (7.4-10.4); PLATELET COUNT 373 x10^3/uL (130-400); RED BLOOD COUNT 3.33 x10^6/uL (4.38-5.82); RED CELL DISTRIBUTION WIDTH 17.2 % (9.4-14.8)
[2021-02-11 04:34] LABS: ALANINE AMINOTRANSFERASE 9 U/L (12-78); ALBUMIN 1.4 g/dL (3.4-5.0); ANION GAP 13 mmol/L (5-15); CALCIUM 7.2 mg/dL (8.5-10.1); CHLORIDE 99 mmol/L (98-107); CREATININE 5.26 mg/dL (0.7-1.3)
[2021-02-11 04:40] LABS: ALKALINE PHOSPHATASE 233 U/L (45-117); BILIRUBIN,TOTAL 2.5 mg/dL (0.2-1.0); PREALBUMIN 3.6 mg/dL (20.0-40.0); TOTAL PROTEIN 6.8 g/dL (6.4-8.2); TRIGLYCERIDES 372 mg/dL (50-200)
[2021-02-11] MEDS: PROPOFOL 100 ML IV PRN ×2 (05:09→19:48)
[2021-02-11 05:43] LABS: MD YES
[2021-02-11 05:45] LABS: <PLATELET ESTIMATE> ADEQUATE; <PLT MORPHOLOGY> NORMAL PLT MORPH; ANISOCYTOSIS 1+; BAND#(MANUAL) 1.32 x10^3/uL; BANDS%(MANUAL) 5 % (0-7); EOS#(MANUAL) 0.53 x10^3/uL (0.0-0.4); EOS% (MANUAL) 2 % (1-7); LYMPH#(MANUAL) 1.32 x10^3/uL (1-3.4); LYMPHS% (MANUAL) 5 % (22-44); METAMYELOCYTES% (MANUAL) 8 % (0-1); MONOS#(MANUAL) 1.05 x10^3/uL (0.3-2.7); MONOS% (MANUAL) 4 % (2-9); MYELOCYTES# (MANUAL) 0.53 x10^3/uL (0-0); MYELOCYTES% (MANUAL) 2 % (0-0); POLYCHROMASIA 1+; SEG#(MANUAL) 19.46 x10^3/uL (1.8-6.8); SEGS% (MANUAL) 74 % (42-75)
[2021-02-11] MEDS: PANTOPRAZOLE 40 MG IV IVPush SCH ×2 (08:40→17:24)
[2021-02-11] MEDS: SODIUM CHLORIDE FLUSH 10ML SYR IVF SCH ×2 (08:41→20:51)
[2021-02-11] MEDS: FENTANYL PF 1,000 MCG in SODIUM CHLORIDE 0.9% 80 ML IV PRN ×2 (12:04→23:04)
[2021-02-11] MEDS: NOREPINEPHRINE 8 MG in SODIUM CHLORIDE 0.9% 242 ML IV PRN (15:59)
[2021-02-11] MEDS ORDERED: DEXTROSE 70% IV SCH (17:00)
[2021-02-11] MEDS ORDERED: SMOF TPN IV SCH (17:00)
[2021-02-11] MEDS ORDERED: AMINO ACID 15% IV SCH (17:00)
[2021-02-11] MEDS ORDERED: [UNRECOGNIZED DRUG - OTHER] IV SCH (17:00)
[2021-02-11] MEDS ORDERED: FAT EMUL IV SCH (17:00)
[2021-02-11] MEDS: FILTER, DISP 1.2 MICRON FOR TPN/PVN IV PRN (17:23)
[2021-02-11] MEDS: INSULIN REGULAR LOW DOSE QDAY SQ-INSULIN SCH (20:44)
[2021-02-12] MEDS: CEFAZOLIN PMX 1GM/50ML 50 ML IVPB SCH ×2 (03:02→15:12)
[2021-02-12] MEDS: PROPOFOL 100 ML IV PRN ×3 (03:48→21:51)
[2021-02-12 03:59] LABS: MEAN CORPUSCULAR HEMOGLOBIN 26.9 pg (27.5-34.5); MEAN CORPUSCULAR HGB CONC 32.4 g/dL (33.2-36.2); MEAN PLATELET VOLUME 7.8 fL (7.4-10.4); PLATELET COUNT 361 x10^3/uL (130-400); RED BLOOD COUNT 3.12 x10^6/uL (4.38-5.82); RED CELL DISTRIBUTION WIDTH 16.8 % (9.4-14.8)
[2021-02-12 04:00] LABS: MD YES
[2021-02-12 04:07] LABS: ALANINE AMINOTRANSFERASE 6 U/L (12-78); ALBUMIN 1.3 g/dL (3.4-5.0); ANION GAP 15 mmol/L (5-15); CALCIUM 7.5 mg/dL (8.5-10.1); CHLORIDE 95 mmol/L (98-107); CREATININE 5.89 mg/dL (0.7-1.3)
[2021-02-12 04:17] LABS: ALKALINE PHOSPHATASE 260 U/L (45-117); BILIRUBIN,TOTAL 2.6 mg/dL (0.2-1.0); TOTAL PROTEIN 6.8 g/dL (6.4-8.2)
[2021-02-12 04:36] LABS: BANDS%(MANUAL) 4 % (0-7); EOS#(MANUAL) 0.28 x10^3/uL (0.0-0.4); EOS% (MANUAL) 1 % (1-7); LYMPH#(MANUAL) 0.28 x10^3/uL (1-3.4); LYMPHS% (MANUAL) 1 % (22-44); METAMYELOCYTES# (MANUAL) 1.93 x10^3/uL (0-0); METAMYELOCYTES% (MANUAL) 7 % (0-1); MONOS#(MANUAL) 1.65 x10^3/uL (0.3-2.7); MONOS% (MANUAL) 6 % (2-9); MYELOCYTES# (MANUAL) 0.83 x10^3/uL (0-0); MYELOCYTES% (MANUAL) 3 % (0-0); SEG#(MANUAL) 21.45 x10^3/uL (1.8-6.8); SEGS% (MANUAL) 78 % (42-75)
[2021-02-12 04:37] LABS: <PLATELET ESTIMATE> ADEQUATE; ANISOCYTOSIS 1+; MICROCYTOSIS 1+; OVALOCYTES 1+; POLYCHROMASIA 1+; TARGET CELLS 1+; TOXIC GRAN 1+
[2021-02-12 04:38] LABS: <PLT MORPHOLOGY> NORMAL PLT MORPH
[2021-02-12] MEDS: PANTOPRAZOLE 40 MG IV IVPush SCH ×2 (07:43→17:26)
[2021-02-12] MEDS: SODIUM CHLORIDE FLUSH 10ML SYR IVF SCH ×2 (07:44→21:39)
[2021-02-12] MEDS: FENTANYL PF 1,000 MCG in SODIUM CHLORIDE 0.9% 80 ML IV PRN ×2 (13:38→21:51)
[2021-02-12] MEDS ORDERED: SMOF TPN IV SCH (17:00)
[2021-02-12] MEDS ORDERED: AMINO ACID 15% IV SCH (17:00)
[2021-02-12] MEDS ORDERED: DEXTROSE 70% IV SCH (17:00)
[2021-02-12] MEDS ORDERED: [UNRECOGNIZED DRUG - OTHER] IV SCH (17:00)
[2021-02-12] MEDS ORDERED: FAT EMUL IV SCH (17:00)
[2021-02-12] MEDS: FILTER, DISP 1.2 MICRON FOR TPN/PVN IV PRN (17:26)
[2021-02-12] MEDS: INSULIN REGULAR LOW DOSE QDAY SQ-INSULIN SCH (21:00)
[2021-02-13] MEDS: CEFAZOLIN PMX 1GM/50ML 50 ML IVPB SCH ×2 (03:59→14:59)
[2021-02-13] MEDS: NOREPINEPHRINE 8 MG in SODIUM CHLORIDE 0.9% 242 ML IV PRN (04:00)
[2021-02-13 04:22] LABS: MEAN CORPUSCULAR HEMOGLOBIN 27.4 pg (27.5-34.5); MEAN CORPUSCULAR HGB CONC 32.7 g/dL (33.2-36.2); MEAN PLATELET VOLUME 7.9 fL (7.4-10.4); PLATELET COUNT 369 x10^3/uL (130-400); RED BLOOD COUNT 2.95 x10^6/uL (4.38-5.82); RED CELL DISTRIBUTION WIDTH 16.7 % (9.4-14.8)
[2021-02-13 04:25] LABS: MD YES
[2021-02-13 04:35] LABS: ALBUMIN 1.3 g/dL (3.4-5.0); ANION GAP 17 mmol/L (5-15); CALCIUM 7.6 mg/dL (8.5-10.1); CHLORIDE 91 mmol/L (98-107)
[2021-02-13 04:39] LABS: ALANINE AMINOTRANSFERASE 7 U/L (12-78); ALKALINE PHOSPHATASE 336 U/L (45-117); BILIRUBIN,TOTAL 2.3 mg/dL (0.2-1.0); CREATININE 6.74 mg/dL (0.7-1.3)
[2021-02-13 05:02] LABS: BAND#(MANUAL) 1.16 x10^3/uL; BANDS%(MANUAL) 4 % (0-7); EOS#(MANUAL) 0.29 x10^3/uL (0.0-0.4); EOS% (MANUAL) 1 % (1-7); LYMPH#(MANUAL) 0.87 x10^3/uL (1-3.4); LYMPHS% (MANUAL) 3 % (22-44); METAMYELOCYTES# (MANUAL) 0.58 x10^3/uL (0-0); METAMYELOCYTES% (MANUAL) 2 % (0-1); MONOS#(MANUAL) 0.58 x10^3/uL (0.3-2.7); MONOS% (MANUAL) 2 % (2-9); MYELOCYTES# (MANUAL) 0.58 x10^3/uL (0-0); MYELOCYTES% (MANUAL) 2 % (0-0); SEG#(MANUAL) 24.94 x10^3/uL (1.8-6.8); SEGS% (MANUAL) 86 % (42-75)
[2021-02-13 05:03] LABS: ANISOCYTOSIS 1+; POLYCHROMASIA 1+
[2021-02-13 05:07] LABS: HYPOCHROMIA 1+; OVALOCYTES 1+; STOMATOCYTES 1+
[2021-02-13 05:08] LABS: <PLATELET ESTIMATE> ADEQUATE; <PLT MORPHOLOGY> NORMAL PLT MORPH
[2021-02-13] MEDS: PROPOFOL 100 ML IV PRN ×2 (05:27→16:35)
[2021-02-13] MEDS: PANTOPRAZOLE 40 MG IV IVPush SCH ×2 (08:25→19:29)
[2021-02-13] MEDS: SODIUM CHLORIDE FLUSH 10ML SYR IVF SCH ×2 (08:26→19:29)
[2021-02-13] MEDS: FENTANYL PF 1,000 MCG in SODIUM CHLORIDE 0.9% 80 ML IV PRN ×2 (09:48→20:19)
[2021-02-13] MEDS ORDERED: SMOF TPN IV SCH (10:00)
[2021-02-13] MEDS ORDERED: FAT EMUL IV SCH (10:00)
[2021-02-13] MEDS ORDERED: [UNRECOGNIZED DRUG - OTHER] IV SCH (10:00)
[2021-02-13] MEDS ORDERED: DEXTROSE 70% IV SCH ×2 (10:00→17:00)
[2021-02-13] MEDS ORDERED: AMINO ACIDS 10% IV SCH ×2 (10:00→17:00)
[2021-02-13] MEDS: D5%-0.45% NACL 1,000 ML IV SCH (12:20)
[2021-02-13] MEDS ORDERED: SODIUM CHLORIDE IV SCH (17:00)
[2021-02-13] MEDS ORDERED: FILTER, DISP 1.2 MICRON FOR TPN/PVN IV PRN (17:00)
[2021-02-13] MEDS ORDERED: [UNRECOGNIZED DRUG - OTHER] IV SCH (17:00)
[2021-02-13] MEDS: INSULIN REGULAR LOW DOSE QDAY SQ-INSULIN SCH (19:47)
[2021-02-14] MEDS: PROPOFOL 100 ML IV PRN ×2 (02:23→08:56)
[2021-02-14] MEDS: CEFAZOLIN PMX 1GM/50ML 50 ML IVPB SCH ×2 (02:55→15:00)
[2021-02-14 04:21] LABS: ALANINE AMINOTRANSFERASE 10 U/L (12-78); ALBUMIN 1.3 g/dL (3.4-5.0); ANION GAP 17 mmol/L (5-15); CALCIUM 7.9 mg/dL (8.5-10.1); CHLORIDE 92 mmol/L (98-107); CREATININE 7.47 mg/dL (0.7-1.3)
[2021-02-14 04:31] LABS: ALKALINE PHOSPHATASE 350 U/L (45-117); BILIRUBIN,TOTAL 2.3 mg/dL (0.2-1.0); TOTAL PROTEIN 7.2 g/dL (6.4-8.2)
[2021-02-14 04:38] LABS: MEAN CORPUSCULAR HEMOGLOBIN 27.1 pg (27.5-34.5); MEAN CORPUSCULAR HGB CONC 32.4 g/dL (33.2-36.2); PLATELET COUNT 392 x10^3/uL (130-400); RED BLOOD COUNT 2.93 x10^6/uL (4.38-5.82); RED CELL DISTRIBUTION WIDTH 16.8 % (9.4-14.8)
[2021-02-14 04:45] LABS: MD YES
[2021-02-14 05:46] LABS: BAND#(MANUAL) 1.53 x10^3/uL; BANDS%(MANUAL) 5 % (0-7); LYMPH#(MANUAL) 1.84 x10^3/uL (1-3.4); LYMPHS% (MANUAL) 6 % (22-44); METAMYELOCYTES# (MANUAL) 1.22 x10^3/uL (0-0); METAMYELOCYTES% (MANUAL) 4 % (0-1); MONOS#(MANUAL) 0.61 x10^3/uL (0.3-2.7); MONOS% (MANUAL) 2 % (2-9); MYELOCYTES# (MANUAL) 0.61 x10^3/uL (0-0); MYELOCYTES% (MANUAL) 2 % (0-0); SEG#(MANUAL) 24.79 x10^3/uL (1.8-6.8); SEGS% (MANUAL) 81 % (42-75)
[2021-02-14 05:47] LABS: ANISOCYTOSIS 1+; HYPOCHROMIA 1+; POLYCHROMASIA 1+
[2021-02-14 05:49] LABS: <PLATELET ESTIMATE> ADEQUATE; <PLT MORPHOLOGY> NORMAL PLT MORPH
[2021-02-14] MEDS: SODIUM CHLORIDE FLUSH 10ML SYR IVF SCH (08:23)
[2021-02-14] MEDS: PANTOPRAZOLE 40 MG IV IVPush SCH (08:23)
[2021-02-14] MEDS: FENTANYL PF 1,000 MCG in SODIUM CHLORIDE 0.9% 80 ML IV PRN (08:54)
[2021-02-14] MEDS ORDERED: HYDROmorphone 1 MG/ML, 1ML INJ IV PRN (13:30)
[2021-02-14] MEDS ORDERED: LORazepam 2 MG/ML, 1ML IV ONE (13:30)
[2021-02-14] MEDS ORDERED: MORPHINE SULFATE 4 MG/ML, 1ML IV ONE (13:30)
[2021-02-14] MEDS ORDERED: FILTER, DISP 1.2 MICRON FOR TPN/PVN IV PRN (17:00)
[2021-02-14] MEDS ORDERED: AMINO ACIDS 10% IV SCH (17:00)
[2021-02-14] MEDS ORDERED: DEXTROSE 70% IV SCH (17:00)
[2021-02-14] MEDS ORDERED: [UNRECOGNIZED DRUG - OTHER] IV SCH (17:00)
[2021-02-15] MEDS ORDERED: INSULIN REGULAR LOW DOSE QDAY SQ-INSULIN SCH (09:00)
== END 2021-02-14 19:39 | disposition expired | DRG 870 ==
LOC: EDBD → MERGE 10:40 → ED 12:53 → EDIP 12:54 → SUATTDRO 13:05 → ED 13:22 → CCU 16:42
PROVIDERS: ADMIT Internal Medicine; ATTEND Internal Medicine
PROC: 0T9B70Z Drainage of Bladder with Drainage Device, Via Natural or Artificial Opening (ICD-10-PCS; principal; 2021-02-05)
PROC: 5A1955Z Respiratory Ventilation, Greater than 96 Consecutive Hours (ICD-10-PCS; 2021-02-05)
PROC: 0BH17EZ Insertion of Endotracheal Airway into Trachea, Via Natural or Artificial Opening (ICD-10-PCS; 2021-02-05)
PROC: 02HV33Z Insertion of Infusion Device into Superior Vena Cava, Percutaneous Approach (ICD-10-PCS; 2021-02-05)
PROC: B548ZZA Ultrasonography of Superior Vena Cava, Guidance (ICD-10-PCS; 2021-02-05)
PROC: 02HV33Z Insertion of Infusion Device into Superior Vena Cava, Percutaneous Approach (ICD-10-PCS; 2021-02-11)
PROC: B548ZZA Ultrasonography of Superior Vena Cava, Guidance (ICD-10-PCS; 2021-02-11)
DX: A41.01 Sepsis due to Methicillin susceptible Staphylococcus aureus (principal); E43 Unspecified severe protein-calorie malnutrition; G93.41 Metabolic encephalopathy; I26.99 Other pulmonary embolism without acute cor pulmonale; J15.20 Pneumonia due to staphylococcus, unspecified; J96.01 Acute respiratory failure with hypoxia; K72.00 Acute and subacute hepatic failure without coma; N17.0 Acute kidney failure with tubular necrosis; R65.21 Severe sepsis with septic shock; C20 Malignant neoplasm of rectum; C78.00 Secondary malignant neoplasm of unspecified lung; C78.7 Secondary malignant neoplasm of liver and intrahepatic bile duct; D68.69 Other thrombophilia; E87.1 Hypo-osmolality and hyponatremia; E87.2 Acidosis; N39.0 Urinary tract infection, site not specified; Z99.11 Dependence on respirator [ventilator] status; Z66 Do not resuscitate; E83.39 Other disorders of phosphorus metabolism; E86.0 Dehydration; E87.5 Hyperkalemia; F10.10 Alcohol abuse, uncomplicated; F15.10 Other stimulant abuse, uncomplicated; I27.20 Pulmonary hypertension, unspecified; R13.10 Dysphagia, unspecified; Z79.01 Long term (current) use of anticoagulants; Z68.29 Body mass index [BMI] 29.0-29.9, adult; Z86.73 Personal history of transient ischemic attack (TIA), and cerebral infarction without residual deficits; Z87.891 Personal history of nicotine dependence
CPT/HCPCS: 31500; 36415; 36556; 36573; 36600; 70450; 70551; 71045; 71250; 74018; 80048; 80053; 80074; 80202; 80307; 81001; 82040; 82533; 82803; 82962; 83605; 83735; 84100; 84134; 84145; 84478; 85014; 85018; 85025; 85520; 86592; 86704; 86706; 87040; 87070; 87077; 87081; 87086; 87147; 87186; 87205; 87340; 87806; 93005; 93306; 93922; 93925; 94002; 94003; 96374; 96375; 99292; G0378; J0610; J0690; J1170; J1644; J1815; J2543; J2704; J3010; J3370; J7070; P9047; Q9967; C1751; C9113; G0475; J0330; J2060; J2270; J3420; J7030; J7050